=== PATIENT | male | born 1965 | race African-American/Black ===

== ENCOUNTER 2016-10-03 13:17 | Emergency (ER) | payer OTHER ==
[~2016-10-03] VITALS: Ht 177.8 cm; Wt 98.0 kg
[~2016-10-03 13:17] MED LIST: ASPI325T PO; GLUCTES27; INSU100V2 SQ; LANTUS2P SQ; LEXA10TA PO; LISI-519 PO; RISP4TAB41 PO; ROBA750T PO
[2016-10-03 13:30] VITALS: BP 107/69; PULSE 57; RESP 16; TEMP 98.1; O2SAT 98
[2016-10-03] MEDS ORDERED: ONDANSETRON HCL 4 MG/2 ML VIAL IV PUSH ONE (13:45)
[2016-10-03] MEDS ORDERED: SODIUM CHLORIDE 0.9% FLUSH 10 ML FLUSH IV FLUSH PRN (13:45)
[2016-10-03] MEDS ORDERED: SODIUM CHLOR 0.9% 1000 ML INJ 1,000 ML IV SCH (13:45)
--- NOTE | 2016-10-03 13:51 | PD ---
HPI Chief Complaint: HYPERGLYCEMIA Time Seen by Provider: 13:50 Travel History International Travel<30 days: No Contact w/Intl Traveler<30days: No History of Present Illness HPI 50-year-old male with a history of diabetes, hyperlipidemia, hep C is brought to the emergency department by EMS for evaluation of hyperglycemia. The patient states that for the past 2-3 days he has had elevated blood sugars around 400. States that he has also had nausea, nonbloody nonbilious emesis and body aches. Denies fever, chills, abdominal pain, diarrhea, constipation, chest pain, shortness of breath, cough or cold symptoms. He states that he has not used his insulin and about 3 or 4 days because he does not have any money and cannot afford to get it filled. He admits that he is still using cocaine, last used 4 days ago. No other complaints. PCP Dr. Mills. [facility] Past Medical History Hx Anticoagulant Therapy: Yes (asa) Anxiety: No Depression: No Cancer: No Cardiovascular Problems: No High Cholesterol: Yes Diabetes: Yes (TYPE 2, INSULIN) Diminished Hearing: No Endocrine: Yes Gastrointestinal Disorders: Yes (hepatitis C diagnosed 2006 ) Genitourinary: No Hepatitis: Yes ("C") Hypertension: Yes Immune Disorder: No Implanted Vascular Access Dvce: No Musculoskeletal: No Neurologic: No Psychiatric: Yes (schizophrenia) Reproductive: No Respiratory: No Immunizations Current: Yes Schizophrenia: Yes Sickle Cell Disease: No Thyroid Disease: No PNEUMOCCOCAL Vaccine (Year): 1 Past Surgical History Abdominal Surgery: Yes (gallblader removed 1994) Body Medical Devices: screws right wrist Cardiac Surgery: No Cholecystectomy: Yes (1994) Ear Surgery: No Endocrine Surgery: No Eye Surgery: No Genitourinary Surgery: No Oral Surgery: No Thoracic Surgery: No Other Surgery: Yes Social History Alcohol Use: Yes Tobacco Use: No Substance Use: No Allergies-Medications (Allergen,Severity, Reaction): Coded Allergies: *MDRO Multi-Drug Resistant Organism (Verified Allergy, Unknown, 08/06/16) MRSA Wound 01/2004 Reported Meds & Prescriptions Reported Meds & Active Scripts Active Humulin R Inj (Insulin Human Regular) 1,000 Unit/10 Ml Vial 2-12 Units SQ ACHS Max dose at bedtime:( )units; sugars < 70 (0)units; sugars 150-199, (2)units; sugars 200-249,(4)units; sugars 250-299, (7)units; sugars 300-349,(10)units; sugars more than 349,(12)units. Lantus Inj (Insulin Glargine) 1,000 Unit/10 Ml Vial 30 Units SQ BID Robaxin (Methocarbamol) 750 Mg Tab 750 Mg PO Q8HR Reported John Contour Next Blood Test Strips (Blood Glucose Test Strips) 1 Cookie Cookie 1 Strip .ROUTE DIRECTED Aspirin 325 Mg Tab 325 Mg PO DAILY Lexapro (Escitalopram Oxalate) 10 Mg Tab 10 Mg PO DAILY Lisinopril 5 Mg Tab 5 Mg PO DAILY Risperdal (Risperidone) 4 Mg Tab 4 Mg PO HS Review of Systems Except as stated in HPI: all other systems reviewed are Neg Physical Exam Narrative GENERAL: Well-nourished and well-developed pleasant male patient in no acute distress. SKIN: Warm and dry. HEAD: Normocephalic and atraumatic. EYES: No injection, drainage, or hyphema noted. PERRLA. EOMI. ENT: No nasal drainage noted. Oropharynx is clear. NECK: Supple and the trachea is midline. CARDIOVASCULAR: Regular rate and rhythm. RESPIRATORY: Breath sounds are equal bilaterally with no accessory muscle use, wheezing, rhonchi, or crackles. GASTROINTESTINAL: Abdomen is soft, non-tender, and nondistended. MUSCULOSKELETAL: No obvious deformities, swelling, cyanosis, or ecchymosis is present throughout the upper and lower extremities. Patient has full range of motion without any signs of neurovascular compromise. NEUROLOGICAL: Awake, alert, and oriented. Normal speech and gait. Cranial nerves are grossly intact. Data Data Last Documented VS Vital Signs Date Time Temp Pulse Resp B/P Pulse Ox O2 Delivery O2 Flow Rate FiO2 10/03/16 17:00 58 16 123/74 100 Room Air 10/03/16 13:30 98.1 Orders Electrocardiogram (10/03/16 13:45) Lipase (10/03/16 13:45) Complete Blood Count With Diff (10/03/16 13:45) Comprehensive Metabolic Panel (10/03/16 13:45) Magnesium (Mg) (10/03/16 13:45) Phosphorus (Po4) (10/03/16 13:45) Beta Hydroxybutyrate (Acetone) (10/03/16 13:45) Sodium Chlor 0.9% 1000 Ml Inj (Ns 1000 M (10/03/16 13:45) Urinalysis - C+S If Indicated (10/03/16 13:45) Lactic Acid Sepsis Protocol (10/03/16 13:45) Iv Access Insert/Monitor (10/03/16 13:45) Ecg Monitoring (10/03/16 13:45) Oximetry (10/03/16 13:45) Sodium Chlor 0.9% 1000 Ml Inj (Ns 1000 M (10/03/16 13:45) Sodium Chloride 0.9% Flush (Ns Flush) (10/03/16 13:45) Ondansetron Inj (Zofran Inj) (10/03/16 13:45) Creatine Kinase (Cpk) (10/03/16 13:45) Blood Glucose (10/03/16 13:59) Insulin Human Regular Inj (Novolin R Inj (10/03/16 15:30) Blood Glucose (10/03/16 16:37) Labs Laboratory Tests Test 10/03/16 10/03/16 10/03/16 11:00 14:00 15:10 White Blood Count 4.7 TH/MM3 Red Blood Count 4.46 MIL/MM3 Hemoglobin 14.3 GM/DL Hematocrit 40.4 % Mean Corpuscular Volume 90.7 FL Mean Corpuscular Hemoglobin 32.1 PG Mean Corpuscular Hemoglobin 35.4 % Concent Red Cell Distribution Width 12.8 % Platelet Count 124 TH/MM3 Mean Platelet Volume 8.5 FL Neutrophils (%) (Auto) 52.7 % Lymphocytes (%) (Auto) 38.2 % Monocytes (%) (Auto) 7.4 % Eosinophils (%) (Auto) 0.9 % Basophils (%) (Auto) 0.8 % Neutrophils # (Auto) 2.5 TH/MM3 Lymphocytes # (Auto) 1.8 TH/MM3 Monocytes # (Auto) 0.3 TH/MM3 Eosinophils # (Auto) 0.0 TH/MM3 Basophils # (Auto) 0.0 TH/MM3 CBC Comment DIFF FINAL Differential Comment Sodium Level 132 MEQ/L Potassium Level 4.2 MEQ/L Chloride Level 96 MEQ/L Carbon Dioxide Level 21.1 MEQ/L Anion Gap 15 MEQ/L Blood Urea Nitrogen 16 MG/DL Creatinine 1.05 MG/DL Estimat Glomerular Filtration 91 ML/MIN Rate Random Glucose 451 MG/DL Calcium Level 8.7 MG/DL Phosphorus Level 2.8 MG/DL Magnesium Level 2.1 MG/DL Total Bilirubin 0.4 MG/DL Aspartate Amino Transf 65 U/L (AST/SGOT) Alanine Aminotransferase 72 U/L (ALT/SGPT) Alkaline Phosphatase 54 U/L Total Creatine Kinase 112 U/L Total Protein 6.9 GM/DL Albumin 3.1 GM/DL Lipase 203 U/L B-Hydroxybutyrate 5.12 MMOL/L Lactic Acid Level 1.1 mmol/L Urine Color LIGHT-YELLOW Urine Turbidity CLEAR Urine pH 5.5 Urine Specific [place] 1.026 Urine Protein NEG mg/dL Urine Glucose (UA) 1000 mg/dL Urine Ketones 40 mg/dL Urine Occult Blood NEG Urine Nitrite NEG Urine Bilirubin NEG Urine Urobilinogen LESS THAN 2.0 MG/DL Urine Leukocyte Esterase NEG Urine WBC LESS THAN 1 /hpf Microscopic Urinalysis Comment CULT NOT INDICATED MDM Medical Decision Making Medical Screen Exam Complete: Yes Emergency Medical Condition: Yes Differential Diagnosis Hyperglycemia versus DKA versus electrolyte abnormality versus dehydration versus substance abuse Narrative Course 50-year-old male with a history of diabetes presents to the emergency department for evaluation of hyperglycemia with nausea, vomiting and body aches. Patient is afebrile, vital signs are stable. Physical examination is essentially unremarkable. Patient has not used his insulin in several days. EKG shows sinus bradycardia with no acute ST elevations or depressions. IV access is obtained, labs have been drawn and sent. Patient is placed on cardiac telemetry and pulse oximetry monitoring. Patient is administered IV fluids. CBC is unremarkable. CMP shows hyperglycemia with a glucose of 451. Normal bicarbonate, no anion gap and normal potassium. Lactic acid 1.1 CPKs within normal limits. Beta hydroxybutyrate is elevated at 5.12 Urinalysis shows glucosuria and 40 ketones. Patient has been administered 2 L of IV fluid and 10 units of insulin subcutaneous. Blood glucose has come down to 300 while here in the ED. Patient is stable for discharge to follow up as an outpatient with his PCP. Counseled cessation of cocaine use. Counseled compliance with insulin. Patient verbalizes understanding and agreement with treatment plan. I discussed the case with my attending physician Dr. George who is aware of the patients history, physical examination findings, and treatment plan. Diagnosis Primary Impression: Diabetes mellitus with hyperglycemia Qualified Code: E11.65 - Type 2 diabetes mellitus with hyperglycemia, with long-term current use of insulin Additional Impression: Noncompliance with medication regimen Referrals: Primary Care Physician Patient Instructions: Diabetic Hyperglycemia (ED), General Instructions Additional Instructions: Take your insulin as prescribed by your PCP. Follow-up with your Primary Care Physician. Return to the ED for any acute worsening of symptoms. Med/Other Pt SpecificInfo: No Change to Meds Disposition: 01 DISCHARGE HOME Condition: Stable Iman Todd Oct 03, 2016 13:51
[2016-10-03] MEDS: SODIUM CHLOR 0.9% 1000 ML INJ 1,000 ML IV SCH ×2 (14:04→15:00)
[2016-10-03 14:19] VITALS: RESP 16; O2SAT 99
[2016-10-03 14:32] LABS: AUTOMATED NEUTROPHIL # 2.5 TH/MM3 (1.8-7.7); BASOPHIL % 0.8 % (0.0-2.0); EOSINOPHIL % 0.9 % (0.0-4.0); HEMATOCRIT 40.4 % (39.0-51.0); HEMO FLAGS DIFF FINAL; LYMPH % 38.2 % (9.0-44.0); LYMPHOCYTE # 1.8 TH/MM3 (1.0-4.8); MEAN CELL VOLUME 90.7 FL (80.0-100.0); MEAN CORPUSCULAR HEMOGLOBIN 32.1 PG (27.0-34.0); MEAN CORPUSCULAR HGB CONC 35.4 % (32.0-36.0); MONO % 7.4 % (0.0-8.0); NEUT % 52.7 % (16.0-70.0); PLATELET COUNT 124 TH/MM3 (150-450); RED BLOOD COUNT 4.46 MIL/MM3 (4.50-5.90); RED CELL DISTRIBUTION WIDTH 12.8 % (11.6-17.2); WHITE BLOOD COUNT 4.7 TH/MM3 (4.0-11.0)
[2016-10-03 14:58] LABS: ANION GAP 15 MEQ/L (5-15)
[2016-10-03 15:00] VITALS: BP 118/71; PULSE 54; RESP 24; O2SAT 99
[2016-10-03 15:03] LABS: ALKALINE PHOSPHATASE 54 U/L (45-117); ALT (GPT) 72 U/L (12-78); AST (GOT) 65 U/L (15-37); BETA-HYDROXYBUTYRATE 5.12 MMOL/L (0.00-0.39); BICARBONATE 21.1 MEQ/L (21.0-32.0); BLOOD UREA NITROGEN 16 MG/DL (7-18); CHLORIDE 96 MEQ/L (98-107); CREATINE KINASE 112 U/L (39-308); GLOMERULAR FILTRATION RATE 91 ML/MIN (>89); MAGNESIUM 2.1 MG/DL (1.5-2.5); SODIUM (NA) 132 MEQ/L (136-145); TOTAL BILIRUBIN ADULT 0.4 MG/DL (0.2-1.0)
[2016-10-03 15:06] LABS: POTASSIUM 4.2 MEQ/L (3.5-5.1)
[2016-10-03] MEDS ORDERED: INSULIN HUMAN REGULAR 1,000 UNITS/10 ML VIAL SQ ONE (15:30)
[2016-10-03 16:40] LABS: BLOOD, URINE NEG (NEG); GLUCOSE,URINE 1000 mg/dL (NEG); KETONE, URINE 40 mg/dL (NEG); NITRITE,URINE NEG (NEG); PH, URINE 5.5 (5.0-8.5); URINE COLOR LIGHT-YELLOW (YELLW/STRAW)
[2016-10-03 16:41] LABS: COMMENT (UR) CULT NOT INDICATED; CULTURE IF INDICATED CULT NOT INDICATED
[2016-10-03 17:00] VITALS: BP 123/74; PULSE 58; RESP 16; O2SAT 100
--- NOTE | 2016-10-04 10:35 | EKG ---
Date Performed: 10/03/2016 Time Performed: 14:07:51 PTAGE: 50 years EKG: SINUS BRADYCARDIA ST ELEVATION, PROBABLY EARLY REPOLARIZATION BORDERLINE ECG Compared to pr ior tracing no significant change PREVIOUS TRACING : 12/24/2014 03.32 DOCTOR: Minor Mendoza Interpretating Date/Time 10/04/2016 10:28:08
== END 2016-10-03 17:20 | disposition home or self-care (01) ==
LOC: NEPC 13:17
DX: E11.65 Type 2 diabetes mellitus with hyperglycemia (principal); I10 Essential (primary) hypertension; R00.1 Bradycardia, unspecified; F20.9 Schizophrenia, unspecified; E78.00 Pure hypercholesterolemia, unspecified; Z79.4 Long term (current) use of insulin; Z91.14 Patient's other noncompliance with medication regimen; Z79.82 Long term (current) use of aspirin
CPT/HCPCS: 80053; 81001; 82010; 82550; 83605; 83690; 83735; 84100; 85025; 93005; 96361; 96372; 96374; 99285; J1815; J2405; J7030

== ENCOUNTER 2016-10-28 19:06 | Inpatient (IN) | payer OTHER ==
[~2016-10-28] VITALS: Ht 177.8 cm; Wt 90.3 kg
[2016-10-28 19:09] VITALS: BP 124/78; PULSE 83; RESP 16; TEMP 97.9; O2SAT 98
--- NOTE | 2016-10-28 19:18 | PD ---
Physical Exam Time Seen by Provider: 19:15 Narrative 51 y/o male presents for evaluation of dizziness, syncope in which he fell and hit his back on a table. Endorses nausea, emesis last night, hyperglycemia. Dizziness/nausea onset 2 days ago. vital signs reviewed. Seen at triage desk. Awaiting bed placement. Data Data Last Documented VS Vital Signs Date Time Temp Pulse Resp B/P Pulse Ox O2 Delivery O2 Flow Rate FiO2 10/28/16 19:09 97.9 83 16 124/78 98 Room Air [facility] Medical Record Reviewed: Yes Supervised Visit with SIM: Gianni Dickerson October 28, 2016 19:18
[2016-10-28] MEDS ORDERED: SODIUM CHLOR 0.9% 1000 ML INJ 1,000 ML IV ONE ×2 (19:44→20:14)
[2016-10-28] MEDS ORDERED: SODIUM CHLORIDE 0.9% FLUSH 10 ML FLUSH IVF PRN (19:45)
[2016-10-28 19:48] VITALS: BP 118/76; PULSE 67; RESP 18; O2SAT 97
--- NOTE | 2016-10-28 19:49 | PD ---
HPI Chief Complaint: Diabetic Time Seen by Provider: 19:41 Travel History International Travel<30 days: No Contact w/Intl Traveler<30days: No Traveled to known affect area: No History of Present Illness HPI 51-year-old male with history of insulin dependent diabetes, here for evaluation of syncopal episode, lightheadedness, and left flank pain. The patient states that this morning he felt very weak and may have passed out. He states that he landed on his left flank area and is now complaining of pain which is moderate to severe, constant, worse with movement and palpation. He feels nauseous. He has not taken his insulin in the last 4 days because he ran out. He denies fevers or chills. No vomiting or diarrhea. No chest pain or dyspnea. No history of cardiac disease. No history of syncope. Denies head or neck pain or trauma. He takes 81 mg of aspirin daily. No other antiplatelets or anticoagulants. PFSH Past Medical History Hx Anticoagulant Therapy: Yes (asa) Anxiety: No Depression: No Cancer: No Cardiovascular Problems: No High Cholesterol: Yes Diabetes: Yes Patient Takes Glucophage: No Diminished Hearing: No Endocrine: Yes Gastrointestinal Disorders: Yes Genitourinary: No Hepatitis: Yes ("C") Hypertension: Yes Immune Disorder: No Implanted Vascular Access Dvce: No Musculoskeletal: No Neurologic: No Psychiatric: Yes Reproductive: No Respiratory: No Immunizations Current: Yes Schizophrenia: Yes Sickle Cell Disease: No Thyroid Disease: No PNEUMOCCOCAL Vaccine (Year): 1 Past Surgical History Abdominal Surgery: Yes (gallblader removed 1994) Body Medical Devices: screws right wrist Cardiac Surgery: No Cholecystectomy: Yes (1994) Ear Surgery: No Endocrine Surgery: No Eye Surgery: No Genitourinary Surgery: No Oral Surgery: No Thoracic Surgery: No Other Surgery: Yes Social History Alcohol Use: Yes Tobacco Use: No Substance Use: Yes (cocaine ) Allergies-Medications (Allergen,Severity, Reaction): Coded Allergies: *MDRO Multi-Drug Resistant Organism (Verified Allergy, Unknown, 10/28/16) MRSA Wound 01/2004 Reported Meds & Prescriptions Reported Meds & Active Scripts Active Humulin R Inj (Insulin Human Regular) 1,000 Unit/10 Ml Vial 2-12 Units SQ ACHS Max dose at bedtime:( )units; sugars < 70 (0)units; sugars 150-199, (2)units; sugars 200-249,(4)units; sugars 250-299, (7)units; sugars 300-349,(10)units; sugars more than 349,(12)units. Lantus Inj (Insulin Glargine) 1,000 Unit/10 Ml Vial 30 Units SQ BID Robaxin (Methocarbamol) 750 Mg Tab 750 Mg PO Q8HR Reported John Contour Next Blood Test Strips (Blood Glucose Test Strips) 1 Cookie Cookie 1 Strip .ROUTE DIRECTED Aspirin 325 Mg Tab 325 Mg PO DAILY Lexapro (Escitalopram Oxalate) 10 Mg Tab 10 Mg PO DAILY Lisinopril 5 Mg Tab 5 Mg PO DAILY Risperdal (Risperidone) 4 Mg Tab 4 Mg PO HS Review of Systems Except as stated in HPI: all other systems reviewed are Neg Physical Exam Narrative GENERAL: Well-developed, well-nourished, awake, alert, no acute distress. SKIN: Focused skin assessment warm/dry. No rash. HEAD: Atraumatic. Normocephalic. EYES: Pupils equal and round. No scleral icterus. No injection or drainage. ENT: No nasal bleeding or discharge. Mucous membranes pink and dry. NECK: Trachea midline. No JVD. No nuchal rigidity. No midline vertebral step- off or tenderness. CARDIOVASCULAR: Regular rate and rhythm. No murmur appreciated. RESPIRATORY: No accessory muscle use. Clear to auscultation. Breath sounds equal bilaterally. GASTROINTESTINAL: Abdomen soft, non-tender, nondistended. MUSCULOSKELETAL: No obvious deformities. No clubbing. No cyanosis. No edema. Moderate left flank tenderness without edema. No midline vertebral step-off or tenderness. NEUROLOGICAL: Awake and alert. No obvious cranial nerve deficits. Motor grossly within normal limits. Normal speech. PSYCHIATRIC: Appropriate mood and affect; insight and judgment normal. Data Data Last Documented VS Vital Signs Date Time Temp Pulse Resp B/P Pulse Ox O2 Delivery O2 Flow Rate FiO2 10/28/16 19:48 67 18 118/76 97 Room Air 10/28/16 19:09 97.9 Orders Electrocardiogram (10/28/16 19:44) Complete Blood Count With Diff (10/28/16 19:44) Comprehensive Metabolic Panel (10/28/16 19:44) Magnesium (Mg) (10/28/16 19:44) Phosphorus (Po4) (10/28/16 19:44) Beta Hydroxybutyrate (Acetone) (10/28/16 19:44) Urinalysis - C+S If Indicated (10/28/16 19:44) Chest, Single Ap (10/28/16 19:44) Ecg Monitoring (10/28/16 19:44) Iv Access Insert/Monitor (10/28/16 19:44) Oximetry (10/28/16 19:44) NPO (10/28/16 19:44) Sodium Chlor 0.9% 1000 Ml Inj (Ns 1000 M (10/28/16 19:44) Sodium Chlor 0.9% 1000 Ml Inj (Ns 1000 M (10/28/16 20:14) Sodium Chloride 0.9% Flush (Ns Flush) (10/28/16 19:45) Ct Brain W/O Iv Contrast(Rout) (10/28/16 ) Blood Gas Venous (Vbg) (10/28/16 19:44) Ct Abd/Pel W Iv Contrast(Rout) (10/28/16 ) Prothrombin Time / Inr (Pt) (10/28/16 19:47) Act Partial Throm Time (Ptt) (10/28/16 19:47) Ckmb (Isoenzyme) Profile (10/28/16 19:45) Troponin I (10/28/16 19:45) CKMB (10/28/16 19:45) CKMB% (10/28/16 19:45) Registered Nurse / Telemetry ELDA.Q8H (10/28/16 20:40) ^ Insert Iv (10/28/16 20:40) Diet Npo (10/29/16 Breakfast) Sodium Chlor 0.9% 1000 Ml Inj (Ns 1000 M (10/28/16 20:40) Dext 5%-Nacl 0.9% 1000 Ml Inj (D5w-Ns 10 (10/28/16 20:40) Insulin Human Regular Inj (Novolin R Inj (10/28/16 20:45) Insulin Regular (Iv Infusion) (Novolin R (10/28/16 20:45) Potassium Chlor 40 Meq Premix (Kcl 40 Me (10/28/16 20:45) Potassium Chlor 40 Meq Premix (Kcl 40 Me (10/28/16 20:45) Potassium Chlor 20 Meq Premix (Kcl 20 Me (10/28/16 20:45) Potassium Chlor 20 Meq Premix (Kcl 20 Me (10/28/16 20:45) Potassium Chlor 20 Meq Premix (Kcl 20 Me (10/28/16 20:45) Potassium Chlor 20 Meq Premix (Kcl 20 Me (10/28/16 20:45) Potassium Chlor 20 Meq Premix (Kcl 20 Me (10/28/16 20:45) Potassium Chlor 20 Meq Premix (Kcl 20 Me (10/28/16 20:45) Sodium Bicarbonate 8.4% Inj (Sodium Bica (10/28/16 20:45) Sodium Bicarbonate 8.4% Inj (Sodium Bica (10/28/16 20:45) Sodium Phosphate Inj (Sodium Phosphate I (10/28/16 20:45) Hemoglobin (Hgb) A1c (10/28/16 20:40) Basic Metabolic Panel (Bmp) (10/29/16 01:40) Basic Metabolic Panel (Bmp) (10/29/16 07:40) Basic Metabolic Panel (Bmp) (10/29/16 13:40) Basic Metabolic Panel (Bmp) (10/29/16 19:40) Magnesium (Mg) (10/29/16 01:40) Magnesium (Mg) (10/29/16 07:40) Magnesium (Mg) (10/29/16 13:40) Magnesium (Mg) (10/29/16 19:40) Phosphorus (Po4) (10/29/16 01:40) Phosphorus (Po4) (10/29/16 07:40) Phosphorus (Po4) (10/29/16 13:40) Phosphorus (Po4) (10/29/16 19:40) Beta Hydroxybutyrate (Acetone) (10/29/16 07:40) Beta Hydroxybutyrate (Acetone) (10/29/16 19:40) Iohexol 350 Inj (Omnipaque 350 Inj) (10/28/16 20:55) Labs Laboratory Tests Test 10/28/16 10/28/16 19:45 20:19 White Blood Count 5.4 TH/MM3 Red Blood Count 4.69 MIL/MM3 Hemoglobin 15.3 GM/DL Hematocrit 43.7 % Mean Corpuscular Volume 93.2 FL Mean Corpuscular Hemoglobin 32.6 PG Mean Corpuscular Hemoglobin 35.0 % Concent Red Cell Distribution Width 13.1 % Platelet Count 169 TH/MM3 Mean Platelet Volume 9.2 FL Neutrophils (%) (Auto) 56.9 % Lymphocytes (%) (Auto) 30.1 % Monocytes (%) (Auto) 11.3 % Eosinophils (%) (Auto) 0.5 % Basophils (%) (Auto) 1.2 % Neutrophils # (Auto) 3.1 TH/MM3 Lymphocytes # (Auto) 1.6 TH/MM3 Monocytes # (Auto) 0.6 TH/MM3 Eosinophils # (Auto) 0.0 TH/MM3 Basophils # (Auto) 0.1 TH/MM3 CBC Comment DIFF FINAL Differential Comment Urine Color LIGHT-YELLOW Urine Turbidity CLEAR Urine pH 5.0 Urine Specific [place] 1.029 Urine Protein NEG mg/dL Urine Glucose (UA) 1000 mg/dL Urine Ketones 40 mg/dL Urine Occult Blood NEG Urine Nitrite NEG Urine Bilirubin NEG Urine Urobilinogen LESS THAN 2.0 MG/DL Urine Leukocyte Esterase NEG Urine RBC LESS THAN 1 /hpf Urine WBC 1 /hpf Microscopic Urinalysis Comment CULT NOT INDICATED Sodium Level 127 MEQ/L Potassium Level 4.8 MEQ/L Chloride Level 91 MEQ/L Carbon Dioxide Level 16.9 MEQ/L Anion Gap 19 MEQ/L Blood Urea Nitrogen 17 MG/DL Creatinine 1.40 MG/DL Estimat Glomerular Filtration 65 ML/MIN Rate Random Glucose 598 MG/DL Calcium Level 8.9 MG/DL Phosphorus Level 3.9 MG/DL Magnesium Level 2.2 MG/DL Total Bilirubin 0.5 MG/DL Aspartate Amino Transf 70 U/L (AST/SGOT) Alanine Aminotransferase 82 U/L (ALT/SGPT) Alkaline Phosphatase 64 U/L Total Creatine Kinase 150 U/L Creatine Kinase MB LESS THAN 0.5 NG/ML Troponin I LESS THAN 0.02 NG/ML Total Protein 8.2 GM/DL Albumin 3.4 GM/DL B-Hydroxybutyrate 6.97 MMOL/L Blood Gas Puncture Site IV Blood Gas Patient Temperature 98.6 Venous Blood pH 7.40 Venous Blood Partial Pressure 28 mmHg CO2 Venous Blood Partial Pressure 40 mmHg O2 Venous Blood HCO3 17 mmol/L Venous Blood Oxygen Saturation 75 % Venous Blood Oxygen Content 16.4 Vol % Venous Blood Base Excess -7.3 mmol/L Oxygen Delivery Device ROOM AIR MDM Medical Decision Making Medical Screen Exam Complete: Yes Emergency Medical Condition: Yes Interpretation(s) EKG: Sinus, rate 58, normal axis, normal intervals, early repolarization Differential Diagnosis DKA, retroperitoneal hematoma, vertebral injury less likely, metabolic abnormality, intracranial abnormality Narrative Course Vital signs show heart rate 83, blood pressure 124/78, pulse ox 90% on room air , oral temp of 97.9F. CBC is unremarkable. CMP is remarkable for sodium 127, chloride 91, bicarbonate 16.9, anion gap 19, creatinine 1.4, GFR 65, random glucose 600, AST 70, ALT 82. Cardiac enzymes are negative. Beta hydroxybutyrate is 6.97. ABG shows a pH of 7.4, PCO2 28, A to bicarbonate of 17. DKA protocol initiated after labs were resulted. The patient was given 2 L normal saline IV promptly after arriving to the emergency department. Chest x-ray shows no acute disease. CT head: No acute disease. CT abdomen pelvis: CONCLUSION: 1. Unremarkable bowel gas pattern with no evidence of obstruction or inflammatory change. 2. Fatty steatosis involving the liver with multiple areas of low attenuation along the region of the falciform ligament which are nonspecific. This can be further evaluated with outpatient MRI with and without contrast. 3. Status post cholecystectomy. Patient was made aware of all findings. He will be admitted for further treatment and evaluation of DKA, syncope. Critical Care Narrative Aggregate critical care time was 40 minutes. Time to perform other separately billable procedures was not included in the critical care time. My time did not include minutes spent treating any other patients simultaneously or on activities that did not directly contribute to the patient's treatment. The services I provided to this patient were to treat and/or prevent clinically significant deterioration that could result in: , permanent disability, worsening clinical condition, diabetic coma I provided critical care services requiring my management, as noted below: Chart data review, documentation time, medication orders and management, vital sign assessments/reviewing monitor data, ordering and reviewing lab tests, ordering and interpreting/reviewing x-rays and diagnostic studies, care of the patient and discussion of the patient with the admitting physicians. Diagnosis Primary Impression: DKA (diabetic ketoacidoses) Qualified Code: E10.10 - Diabetic ketoacidosis without coma associated with type 1 diabetes mellitus Additional Impression: Syncope Qualified Code: R55 - Syncope, unspecified syncope type Admitting Information Admitting Physician Requests: Admit Toby Tovar MD October 28, 2016 19:49
[2016-10-28 20:07] LABS: AUTOMATED NEUTROPHIL # 3.1 TH/MM3 (1.8-7.7); BASOPHIL # 0.1 TH/MM3 (0-0.2); BASOPHIL % 1.2 % (0.0-2.0); EOSINOPHIL % 0.5 % (0.0-4.0); HEMATOCRIT 43.7 % (39.0-51.0); HEMO FLAGS DIFF FINAL; LYMPH % 30.1 % (9.0-44.0); LYMPHOCYTE # 1.6 TH/MM3 (1.0-4.8); MEAN CELL VOLUME 93.2 FL (80.0-100.0); MEAN CORPUSCULAR HEMOGLOBIN 32.6 PG (27.0-34.0); MONO % 11.3 % (0.0-8.0); NEUT % 56.9 % (16.0-70.0); PLATELET COUNT 169 TH/MM3 (150-450); RED BLOOD COUNT 4.69 MIL/MM3 (4.50-5.90); RED CELL DISTRIBUTION WIDTH 13.1 % (11.6-17.2); WHITE BLOOD COUNT 5.4 TH/MM3 (4.0-11.0)
[2016-10-28 20:20] LABS: BLOOD, URINE NEG (NEG); COMMENT (UR) CULT NOT INDICATED; CULTURE IF INDICATED CULT NOT INDICATED; GLUCOSE,URINE 1000 mg/dL (NEG); KETONE, URINE 40 mg/dL (NEG); NITRITE,URINE NEG (NEG); URINE COLOR LIGHT-YELLOW (YELLW/STRAW)
[2016-10-28 20:23] LABS: BLOOD GAS VENOUS BASE EXCESS -7.3 mmol/L (-2-2); BLOOD GAS VENOUS HCO3 17 mmol/L (22-26); BLOOD GAS VENOUS O2 CONTENT 16.4 Vol % (9.0-17.0); BLOOD GAS VENOUS O2 HGB SAT 75 % (70-76); BLOOD GAS VENOUS PCO2 28 mmHg (44-48); BLOOD GAS VENOUS PO2 40 mmHg (35-40); CRITICAL VALUE NO; OXYGEN DEVICE ROOM AIR; TEMP CORR TO 98.6
[2016-10-28 20:24] LABS: DRAW SITE IV; STAT NO
[2016-10-28 20:29] LABS: ANION GAP 19 MEQ/L (5-15)
[2016-10-28 20:34] LABS: ALKALINE PHOSPHATASE 64 U/L (45-117); ALT (GPT) 82 U/L (12-78); AST (GOT) 70 U/L (15-37); BETA-HYDROXYBUTYRATE 6.97 MMOL/L (0.00-0.39); BICARBONATE 16.9 MEQ/L (21.0-32.0); BLOOD UREA NITROGEN 17 MG/DL (7-18); CHLORIDE 91 MEQ/L (98-107); CREATINE KINASE 150 U/L (39-308); GLOMERULAR FILTRATION RATE 65 ML/MIN (>89); MAGNESIUM 2.2 MG/DL (1.5-2.5); POTASSIUM 4.8 MEQ/L (3.5-5.1); SODIUM (NA) 127 MEQ/L (136-145); TOTAL BILIRUBIN ADULT 0.5 MG/DL (0.2-1.0)
--- NOTE | 2016-10-28 20:39 | RADRPT ---
EXAM DATE/TIME: 10/28/2016 20:19 [facility] COMPARISON: CHEST SINGLE AP, December 24, 2014, 4:51. INDICATIONS : Posterior left side chest pain. MEDICAL HISTORY : None. SURGICAL HISTORY : None. ENCOUNTER: Initial ACUITY: 1 day PAIN SCORE: 8/10 LOCATION: Left posterior chest. FINDINGS: A single view of the chest demonstrates the lungs to be symmetrically aerated without evidence of mas s, infiltrate or effusion. The cardiomediastinal contours are unremarkable. Osseous structures are intact. There is no pneumothorax. There are overlying electrocardiogram leads. CONCLUSION: No acute disease. German Malloy MD on October 28, 2016 at 20:36 Board Certified Radiologist. This report was verified electronically.
[2016-10-28] MEDS ORDERED: POTASSIUM CHLOR 20 MEQ PREMIX 100 ML IV PRN ×5 (20:45)
[2016-10-28] MEDS ORDERED: POTASSIUM CHLOR 40 MEQ PREMIX 100 ML IV PRN ×2 (20:45)
[2016-10-28] MEDS ORDERED: INSULIN REGULAR (IV INFUSION) 100 UNITS in SODIUM CHLORIDE 0.9% INJ 99 ML IV SCH (20:45)
[2016-10-28] MEDS ORDERED: SODIUM BICARBONATE 8.4% SOLN 50 MEQ/50 ML VIAL IV PRN ×2 (20:45)
[2016-10-28] MEDS ORDERED: INSULIN HUMAN REGULAR 1,000 UNITS/10 ML VIAL IV PUSH ONE (20:45)
[2016-10-28] MEDS ORDERED: SODIUM PHOSPHATE INJ 15 MMOL in SODIUM CHLORIDE 0.9% INJ 100 ML IV PRN (20:45)
[2016-10-28] MEDS ORDERED: IOHEXOL 350 MG/ML 10 ML VIAL (for RAD DIAG) IV ONE (20:55)
[2016-10-28 20:58] LABS: CKMB LESS THAN 0.5 NG/ML (0.5-3.6)
--- NOTE | 2016-10-28 21:03 | RADRPT ---
EXAM DATE/TIME: 10/28/2016 20:49 [facility] COMPARISON: No previous studies available for comparison. INDICATIONS : Fell and hit head yesterday, dizzy RADIATION DOSE: 64.19 CTDIvol (mGy) MEDICAL HISTORY : Hypertension. Diabetes mellitus type 2. Hepatitis C. SURGICAL HISTORY : Cholecystectomy. ENCOUNTER: Initial ACUITY: 2 days PAIN SCALE: 6/10 LOCATION: cranial TECHNIQUE: Multiple contiguous axial images were obtained of the head. Using automated exposure control and adj ustment of the mA and/or kV according to patient size, radiation dose was kept as low as reasonably a chievable to obtain optimal diagnostic quality images. FINDINGS: CEREBRUM: The ventricles are normal for age. No evidence of midline shift, mass lesion, hemorrhage or acute in farction. No extra-axial fluid collections are seen. POSTERIOR FOSSA: The cerebellum and brainstem are intact. The 4th ventricle is midline. The cerebellopontine angle i s unremarkable. EXTRACRANIAL: The visualized portion of the orbits is intact. SKULL: The calvaria is intact. No evidence of skull fracture. CONCLUSION: Negative noncontrast exam. German Malloy MD on October 28, 2016 at 20:56 Board Certified Radiologist. This report was verified electronically.
--- NOTE | 2016-10-28 21:12 | RADRPT ---
EXAM DATE/TIME: 10/28/2016 20:52 [facility] COMPARISON: No previous studies available for comparison. INDICATIONS : Nausea IV CONTRAST: 95 cc Omnipaque 350 (iohexol) IV ORAL CONTRAST: No oral contrast ingested. RADIATION DOSE: 7.94 CTDIvol (mGy) MEDICAL HISTORY : Hypertension. Diabetes mellitus type 2. Hepatitis C. SURGICAL HISTORY : Cholecystectomy. ENCOUNTER: Initial ACUITY: 2 days PAIN SCALE: 2/10 LOCATION: Diffuse abdomen TECHNIQUE: Volumetric scanning of the abdomen and pelvis was performed. Using automated exposure control and ad justment of the mA and/or kV according to patient size, radiation dose was kept as low as reasonably achievable to obtain optimal diagnostic quality images. FINDINGS: LOWER LUNGS: The visualized lower lungs are clear. LIVER: Homogeneous density without lesion. There is no dilation of the biliary tree. The patient is status post cholecystectomy. There is mild hepatic steatosis. There are ill-defined low-attenuation areas al anabelle the falciform ligament seen on images numbers 27 through 33. This measures up to approximately 2. 5 x 1.3 cm in diameter. SPLEEN: Normal size without lesion. PANCREAS: Within normal limits. KIDNEYS: Normal in size and shape. There is no mass, stone or hydronephrosis. ADRENAL GLANDS: Within normal limits. VASCULAR: There is no aortic aneurysm. BOWEL/MESENTERY: The stomach, small bowel, and colon demonstrate no acute abnormality. There is no free intraperitone al air or fluid. ABDOMINAL WALL: Within normal limits. RETROPERITONEUM: There is no lymphadenopathy. BLADDER: No wall thickening or mass. REPRODUCTIVE: Within normal limits. INGUINAL: There is no lymphadenopathy or hernia. MUSCULOSKELETAL: Within normal limits for patient age. CONCLUSION: 1. Unremarkable bowel gas pattern with no evidence of obstruction or inflammatory change. 2. Fatty steatosis involving the liver with multiple areas of low attenuation along the region of the falciform ligament which are nonspecific. This can be further evaluated with outpatient MRI with and without contrast. 3. Status post cholecystectomy. German Malloy MD on October 28, 2016 at 21:07 Board Certified Radiologist. This report was verified electronically.
[2016-10-28] MEDS: SODIUM CHLOR 0.9% 1000 ML INJ 1,000 ML IV SCH (21:35)
[2016-10-28] MEDS ORDERED: SODIUM CHLORIDE 0.9% FLUSH 10 ML FLUSH IV FLUSH PRN (21:45)
[2016-10-28] MEDS ORDERED: NALOXONE HCL 0.4 MG/ML AMP IV PRN (21:45)
[2016-10-28] MEDS: DEXT 5%-NACL 0.9% 1000 ML INJ 1,000 ML IV SCH (22:52)
--- NOTE | 2016-10-28 23:01 | HHI.HP ---
[facility] Primary Care Physician Jenelle Mills MD Admission Diagnosis DKA, syncope Diagnoses: (1) DKA (diabetic ketoacidoses) (2) Syncope Chief Complaint: Syncopal episode and left back/flank pain Travel History International Travel<30 Days: No Contact w/Intl Traveler <30 Da: No Traveled to Known Affected Are: No History of Present Illness Mr. Martines is a 51-year-old male with a history of type 2 diabetes mellitus, hepatitis C, and hyperlipidemia who presented to the emergency room on 10/28/2016 for evaluation of a syncopal episode, lightheadedness, and left flank pain. Blood glucose was 598 in the ER. Mr. Martines is seen in the ER. He reports the following: Dizziness, lightheadedness, nausea, vomited for the past few days with a single syncopal episode today - denies chest pain, shortness of breath, diaphoresis, or nausea/vomiting prior to syncope - denies confusion post-syncopal episode; denies urine or fecal incontinence, denies unilateral weakness - episode occurred at 10 a.m. then he rested at home - was dizzy and left side of back was hurting - was able to get up and go to bathroom etc.- at 4 p.m. he decided to come to ER because his back was hurting and suspected his blood sugar was high (felt like it was high but didn't measure it) dizziness occurs when standing up Red blood in stool a few days ago - on toilet paper - occurred a couple of times - no history of hemorrhoids Denies black or red vomit No dysuria or hematuria Reports severe aching left back/flank pain worsened with movement and touch. Denies hypertension, CAD, CHF, irregular heart rhythms, breathing problems: copd asthma, kidney problems, seizures, thyroid, cancer, prostate problems, or problems with blood clots such as PE, DVT, or CVA hepatitis C 2006 - treated Never had colonoscopy or panendoscopy Review of Systems Except as stated in HPI: all other systems reviewed are Neg Past Family Social History Past Medical History Type 2 diabetes mellitus since 2006 Hyperlipidemia Hepatitis C Past Surgical History right wrist surgery cholecystectomy wart removal . Reported Medications Reported Meds & Active Scripts Active Humulin R Inj (Insulin Human Regular) 1,000 Unit/10 Ml Vial 2-12 Units SQ ACHS Max dose at bedtime:( )units; sugars < 70 (0)units; sugars 150-199, (2)units; sugars 200-249,(4)units; sugars 250-299, (7)units; sugars 300-349,(10)units; sugars more than 349,(12)units. Lantus Inj (Insulin Glargine) 1,000 Unit/10 Ml Vial 30 Units SQ BID Robaxin (Methocarbamol) 750 Mg Tab 750 Mg PO Q8HR Reported Rewalon Contour Next Blood Test Strips (Blood Glucose Test Strips) 1 Cookie Cookie 1 Strip .ROUTE DIRECTED Aspirin 325 Mg Tab 325 Mg PO DAILY Lexapro (Escitalopram Oxalate) 10 Mg Tab 10 Mg PO DAILY Lisinopril 5 Mg Tab 5 Mg PO DAILY Risperdal (Risperidone) 4 Mg Tab 4 Mg PO HS . Allergies: Coded Allergies: *MDRO Multi-Drug Resistant Organism (Verified Allergy, Unknown, 10/28/16) MRSA Wound 01/2004 Active Ordered Medications Current Medications Sodium Chloride 1,000 ml @ 2,000 mls/hr Q30M ONCE IV Last administered on 19:56; Start 10/28/16 at 19:44; Stop 10/28/16 at 20:13; Status DC Sodium Chloride (NS 1000 ml Inj) 1,000 ml @ 2,000 mls/hr Q30M ONCE IV Last administered on 10/28/16 19:56; Start 10/28/16 at 20:14; Stop 10/28/16 at 20:43; Status DC Sodium Chloride 2 ml 2 ml UNSCH PRN IVF FLUSH AFTER USING IV ACCESS Last administered on 10/28/16 19:56; Start 10/28/16 at 19:45; Stop 10/28/16 at 21:42; Status DC Sodium Chloride 1,000 ml @ 250 mls/hr Q4H IV Last administered on 10/28/16 21: 35; Start 10/28/16 at 20:40 Dextrose/Sodium Chloride (D5W-NS 1000 ml Inj) 1,000 ml @ 200 mls/hr Q5H IV Last administered on 10/29/16 01:44; Start 10/28/16 at 20:40 Insulin Human Regular 9 units 9 units BOLUS ONCE IV PUSH Last administered on 10/28/16 21:35; Start 10/28/16 at 20:45; Stop 10/28/16 at 20:46; Status DC Insulin Human Regular 100 units/ Sodium Chloride 100 ml @ 0 mls/hr TITRATE IV Last administered on 10/28/16 21:42; Start 10/28/16 at 20:45 Potassium Chloride 100 ml @ 100 mls/hr Q1H PRN IV SEE LABEL COMMENTS; Start at 20:45 Potassium Chloride 100 ml @ 50 mls/hr Q2H PRN IV SEE LABEL COMMENTS; Start 10/28/16 at 20:45 Potassium Chloride 100 ml @ 100 mls/hr Q1H PRN IV SEE LABEL COMMENTS; Start at 20:45 Potassium Chloride 100 ml @ 100 mls/hr Q1H PRN IV SEE LABEL COMMENTS; Start at 20:45 Potassium Chloride 100 ml @ 50 mls/hr Q2H PRN IV SEE LABEL COMMENTS Last administered on 10/29/16 04:47; Start 10/28/16 at 20:45 Potassium Chloride 100 ml @ 50 mls/hr Q2H PRN IV SEE LABEL COMMENTS; Start 10/28/16 at 20:45 Potassium Chloride 100 ml @ 50 mls/hr Q2H PRN IV SEE LABEL COMMENTS; Start 10/28/16 at 20:45 Potassium Chloride (KCl 20 Meq Premix Inj) 100 ml @ 50 mls/hr Q2H PRN IV SEE LABEL COMMENTS; Start 10/28/16 at 20:45 Sodium Bicarbonate (Sodium Bicarbonate 8.4% Inj) 100 meq UNSCH PRN IV SEE LABEL COMMENTS; Start 10/28/16 at 20:45 Sodium Bicarbonate 50 meq 50 meq UNSCH PRN IV SEE LABEL COMMENTS; Start at 20:45 Sodium Phosphate/ Sodium Chloride (Sodium Phosphate Inj/NS Inj) 105 ml @ 25 mls /hr UNSCH PRN IV SEE LABEL COMMENTS; Start 10/28/16 at 20:45 Iohexol (Omnipaque 350 Inj) 95 ml STK-MED ONCE IV Last administered on 20:55; Start 10/28/16 at 20:55; Stop 10/28/16 at 20:56; Status DC Sodium Chloride (NS Flush) 2 ml UNSCH PRN IV FLUSH FLUSH AFTER USING IV ACCESS ; Start 10/28/16 at 21:45 Sodium Chloride (NS Flush) 2 ml BID IV FLUSH ; Start 10/29/16 at 09:00 Naloxone HCl (Narcan Inj) 0.4 mg UNSCH PRN IV SEE LABEL COMMENTS; Start at 21:45 Cyclobenzaprine HCl (Flexeril) 10 mg Q8H PRN PO muscle spasm; Start 10/28/16 at 23:15 Acetaminophen/ Hydrocodone Bitart ([place] 5-325 Mg) 1 tab Q6H PRN PO pain >5; Start 10/28/16 at 23:15 . Family History Mom and dad with hypertension Dad with MIs . Social History Tobacco: never Alcohol: quit drinking 4 months ago Illicit Drugs: cocaine with last use 5 days ago . Physical Exam Vital Signs Vital Signs Date Time Temp Pulse Resp B/P Pulse Ox O2 Delivery O2 Flow Rate FiO2 10/28/16 19:48 67 18 118/76 97 Room Air 10/28/16 19:09 97.9 83 16 124/78 98 Room Air Physical Exam GENERAL: This is a pleasant male patient, in no apparent distress. SKIN: No rashes, ecchymoses or lesions. Cool and dry. HEAD: Atraumatic. Normocephalic. EYES: No scleral icterus. No injection or drainage. ENT: Nose without bleeding, purulent drainage. NECK: Trachea midline. No JVD or lymphadenopathy. CARDIOVASCULAR: Regular rate and rhythm without murmurs, gallops, or rubs. RESPIRATORY: Clear to auscultation. Breath sounds equal bilaterally. No wheezes , rales, or rhonchi. GASTROINTESTINAL: Abdomen soft, non-tender, nondistended. No guarding. MUSCULOSKELETAL: Extremities without clubbing, cyanosis, or edema. No calf tenderness. Left back/flank area with pain reproduced with palpation. Worsened with rotation of the thorax. No pain with palpation of spine. NEUROLOGICAL: Awake and alert. Motor and sensory grossly within normal limits. Normal speech. . Laboratory Laboratory Tests Test 10/28/16 10/28/16 19:45 20:19 White Blood Count 5.4 Red Blood Count 4.69 Hemoglobin 15.3 Hematocrit 43.7 Mean Corpuscular Volume 93.2 Mean Corpuscular Hemoglobin 32.6 Mean Corpuscular Hemoglobin 35.0 Concent Red Cell Distribution Width 13.1 Platelet Count 169 Mean Platelet Volume 9.2 Neutrophils (%) (Auto) 56.9 Lymphocytes (%) (Auto) 30.1 Monocytes (%) (Auto) 11.3 Eosinophils (%) (Auto) 0.5 Basophils (%) (Auto) 1.2 Neutrophils # (Auto) 3.1 Lymphocytes # (Auto) 1.6 Monocytes # (Auto) 0.6 Eosinophils # (Auto) 0.0 Basophils # (Auto) 0.1 CBC Comment DIFF FINAL Differential Comment Urine Color LIGHT-YELLOW Urine Turbidity CLEAR Urine pH 5.0 Urine Specific [place] 1.029 Urine Protein NEG Urine Glucose (UA) 1000 Urine Ketones 40 Urine Occult Blood NEG Urine Nitrite NEG Urine Bilirubin NEG Urine Urobilinogen LESS THAN 2.0 Urine Leukocyte Esterase NEG Urine RBC LESS THAN 1 Urine WBC 1 Microscopic Urinalysis Comment CULT NOT INDICATED Sodium Level 127 Potassium Level 4.8 Chloride Level 91 Carbon Dioxide Level 16.9 Anion Gap 19 Blood Urea Nitrogen 17 Creatinine 1.40 Estimat Glomerular Filtration 65 Rate Random Glucose 598 Calcium Level 8.9 Phosphorus Level 3.9 Magnesium Level 2.2 Total Bilirubin 0.5 Aspartate Amino Transf 70 (AST/SGOT) Alanine Aminotransferase 82 (ALT/SGPT) Alkaline Phosphatase 64 Total Creatine Kinase 150 Creatine Kinase MB LESS THAN 0.5 Troponin I LESS THAN 0.02 Total Protein 8.2 Albumin 3.4 B-Hydroxybutyrate 6.97 Blood Gas Puncture Site IV Blood Gas Patient Temperature 98.6 Venous Blood pH 7.40 Venous Blood Partial Pressure 28 CO2 Venous Blood Partial Pressure 40 O2 Venous Blood HCO3 17 Venous Blood Oxygen Saturation 75 Venous Blood Oxygen Content 16.4 Venous Blood Base Excess -7.3 Oxygen Delivery Device ROOM AIR Result Diagram: 10/28/16194410/28/161944 Imaging Last Impressions Chest X-Ray 10/28/161943 Signed Impressions: Service Date/Time: Friday, October 28, 2016 20:19 - CONCLUSION: No acute disease. German Malloy MD Head CT 10/28/16 0000 Signed Impressions: Service Date/Time: Friday, October 28, 2016 20:49 - CONCLUSION: Negative noncontrast exam. German Malloy MD Abdomen/Pelvis CT 10/28/16 0000 Signed Impressions: Service Date/Time: Friday, October 28, 2016 20:52 - CONCLUSION: 1. Unremarkable bowel gas pattern with no evidence of obstruction or inflammatory change. 2. Fatty steatosis involving the liver with multiple areas of low attenuation along the region of the falciform ligament which are nonspecific. This can be further evaluated with outpatient MRI with and without contrast. 3. Status post cholecystectomy. German Malloy MD . Assessment and Plan Problem List: (1) DKA (diabetic ketoacidoses) ICD Code: E13.10 Status: Acute (2) Syncope ICD Code: R55 Status: Acute (3) Left flank pain ICD Code: R10.9 Status: Acute Assessment and Plan Mr. Martines is a 51-year-old male with a history of type 2 diabetes mellitus, hepatitis C, and hyperlipidemia who presented to the emergency room on 10/28/2016 for evaluation of a syncopal episode, lightheadedness, and left flank pain. Blood glucose was 598 in the ER. Diabetic Ketoacidosis - Insulin drip - Hypoglycemia protocol - We will transition to basal and sliding scale insulin regimens when patient is tolerating food Syncope - 2-D Echocardiogram to assess cardiac structure and function - Carotid ultrasound to rule out carotid stenosis as a contributing factor - Continuous cardiac telemetry to monitor for cardiac arrhythmias - Negative head CT in ER Left flank pain - likely secondary to muscle strain following fall - CT of abdomen/, shows unremarkable bowel gas pattern with no evidence of obstruction or inflammatory change. Fatty stated ptosis involving the liver with nonspecific areas of low attenuation along the region of the falciform ligament. Outpatient follow-up with MRI (with and without contrast) as recommended by radiologist. - Lortab 5/325 every 6 hours as needed by mouth PRN for for pain - Flexeril 10 milligrams every 8 hours by mouth as needed for muscle spasm GI bleed suspected - consult gastroenterology - Type and screen DVT prophylaxis - chemoprophylaxis contraindicated due to suspected GI bleed - SCDs Written by Esther Oliveira, acting as scribe for Dr. Barrios on 10/28/16 at 22:57. .This note was transcribed by scribe [Esther Oliveira]. I, Dr. Guillermo Barrios personally performed the history, physical exam, and medical decision making; and confirmed the accuracy of the information in the transcribed note. Authenticated by Dr. Guillermo Barrios on 10/28/16 at 22:57. critical care time 30min Discussed Condition With ER physician and patient . Physician Certification 2 Midnight Certification Type: Admission for Inpatient Services Order for Inpatient Services The services are ordered in accordance with Medicare regulations or non- Medicare payer requirements, as applicable. In the case of services not specified as inpatient-only, they are appropriately provided as inpatient services in accordance with the 2-midnight benchmark. Estimated LOS (days): 3 days is the estimated time the patient will need to remain in the hospital, assuming treatment plan goals are met and no additional complications. Post-Hospital Plan: Not yet determined Problem Qualifiers (1) DKA (diabetic ketoacidoses): Qualified Code: E10.10 - Diabetic ketoacidosis without coma associated with type 1 diabetes mellitus (2) Syncope: Qualified Code: R55 - Syncope, unspecified syncope type Esther Oliveira October 28, 2016 23:01 Guillermo Barrios MD October 29, 2016 08:24
[2016-10-28] MEDS ORDERED: ACETAMINOPHEN/HYDROcodone 325 MG/5 MG TAB PO PRN (23:15)
[2016-10-28] MEDS ORDERED: CYCLOBENZAPRINE HCL 10 MG TAB PO PRN (23:15)
[2016-10-28 23:32] VITALS: BP 104/67; PULSE 63; RESP 16; O2SAT 97
[2016-10-28 23:33] LABS: AUTOMATED NEUTROPHIL # 3.2 TH/MM3 (1.8-7.7); BASOPHIL % 0.6 % (0.0-2.0); EOSINOPHIL % 0.5 % (0.0-4.0); HEMATOCRIT 36.5 % (39.0-51.0); LYMPH % 38.3 % (9.0-44.0); LYMPHOCYTE # 2.4 TH/MM3 (1.0-4.8); MEAN CELL VOLUME 90.7 FL (80.0-100.0); MEAN CORPUSCULAR HEMOGLOBIN 32.7 PG (27.0-34.0); MONO % 10.4 % (0.0-8.0); NEUT % 50.2 % (16.0-70.0); PLATELET COUNT 149 TH/MM3 (150-450); RED BLOOD COUNT 4.03 MIL/MM3 (4.50-5.90); RED CELL DISTRIBUTION WIDTH 12.8 % (11.6-17.2); WHITE BLOOD COUNT 6.3 TH/MM3 (4.0-11.0)
[2016-10-28 23:34] LABS: HEMO FLAGS AUTO DIFF
[2016-10-29] VITALS (8 sets, daily range): BP systolic 107–124; BP diastolic 69–78; PULSE 51–65; RESP 16–24; TEMP 96.2–98.1; O2SAT 95–99
[2016-10-29 00:05] LABS: PLATELET ESTIMATE SMEAR NORMAL (NORMAL); PLATELET MORPHOLOGY NORMAL (NORMAL); SCAN/DIFF AUTO DIFF CONFIRMED
[2016-10-29] MEDS: SODIUM CHLOR 0.9% 1000 ML INJ 1,000 ML IV SCH ×4 (00:40→17:41)
[2016-10-29] MEDS: DEXT 5%-NACL 0.9% 1000 ML INJ 1,000 ML IV SCH ×2 (01:44→06:40)
[2016-10-29 02:10] LABS: APTT (PATIENT) 26.1 SEC (24.3-30.1); PROTHROMBIN TIME - PATIENT 11.2 SEC (9.8-11.6)
[2016-10-29 02:23] LABS: BICARBONATE 21.3 MEQ/L (21.0-32.0); POTASSIUM 3.2 MEQ/L (3.5-5.1)
[2016-10-29] MEDS: POTASSIUM CHLOR 20 MEQ PREMIX 100 ML IV PRN ×3 (02:45→06:44)
[2016-10-29] MEDS ORDERED: POTASSIUM CHLORIDE 10 MEQ CONTROLLED RELEASE TAB PO ONE (06:30)
[2016-10-29] MEDS: SODIUM CHLORIDE 0.9% FLUSH 10 ML FLUSH IV FLUSH SCH ×2 (07:57→20:43)
[2016-10-29 08:10] LABS: BETA-HYDROXYBUTYRATE 0.85 MMOL/L (0.00-0.39); BICARBONATE 22.1 MEQ/L (21.0-32.0); POTASSIUM 3.5 MEQ/L (3.5-5.1)
[2016-10-29] MEDS ORDERED: DEXTROSE 50% IN WATER 50 ML VIAL(D50) IV PUSH PRN (08:30)
[2016-10-29] MEDS ORDERED: GLUCAGON 1 MG/ML VIAL OTHER PRN (08:30)
[2016-10-29] MEDS: LISINOPRIL 5 MG TAB PO SCH (08:36)
[2016-10-29] MEDS: ASPIRIN 325 MG TAB PO SCH (08:36)
[2016-10-29] MEDS: ESCITALOPRAM OXALATE 10 MG TAB PO SCH (08:36)
[2016-10-29] MEDS ORDERED: INSULIN DETEMIR 100 UNITS/ML VIAL SQ SCH (09:00)
--- NOTE | 2016-10-29 09:30 | RADRPT ---
EXAM DATE/TIME: 10/29/2016 08:02 [facility] COMPARISON: No previous studies available for comparison. INDICATIONS : Syncope. MEDICAL HISTORY : Hypertension. Diabetes mellitus type 2. Hepatitis C. SURGICAL HISTORY : Cholecystectomy. ENCOUNTER: Initial ACUITY: 1 day PAIN SCORE: 0/10 LOCATION: Bilateral neck PEAK SYSTOLIC VELOCITIES (cm/sec): ICA/CCA RATIO: Right: 0.7 Left: 0.6 ICA: Right: 54 Left: 65 CCA: Right: 82 Left: 107 ECA: Right: 61 Left: 74 VERTEBRAL: Right: 29 antegrade Left: 56 antegrade Elevated flow velocities and ICA/CCA ratios have been found to correlate with increased degrees of vessel stenosis, calculated as percentage of diameter relative to a normal segment of distal ICA/CCA FINDINGS: RIGHT CAROTID: Noncalcified atheromatous plaque of the ICA origin. No significant stenosis is visualized. The wavef orms are within normal limits. LEFT CAROTID: Partially calcified atheromatous plaque of the ICA origin. No significant stenosis is visualized. Th e waveforms are within normal limits. VERTEBRAL ARTERIES: Antegrade flow is seen in both vertebral arteries. MISCELLANEOUS: None. CONCLUSION: 1. Mild plaque without a hemodynamically significant stenosis. 2. Antegrade flow involving both vertebral arteries. Garth Santana Jr., MD on October 29, 2016 at 9:10 Board Certified Radiologist. This report was verified electronically.
[2016-10-29] MEDS: INSULIN ASPART SUPPLEMENTAL SCALE SQ SCH ×3 (11:05→20:44)
--- NOTE | 2016-10-29 11:52 | PD.CONS ---
HPI History of Present Illness This is a 51 year old [gentleman] who came to the hospital yesterday after feeling sick and "passing out." He was foudn to have BG 598 in ER. He has nausea, vomited Wednesday, no blood. He has been having bright red blood intermingled in stool intermittently about once per week for the last few years. He last noticed it 2 days ago. No black tarry stools. Occasional diarrhea that is watery and he is unable/unwilling to qualify further. He had a BM wed and says there was not blood in it. HE denies abdominal pain, constipation, hematemesis, dark tarry stools. Denies NSAID use. Has never had EGD or colonoscopy. He does have hx DMI, hep-c s/p tx. PFSH Past Medical History Insulin dependent -diabetes mellitus since 2006 Hyperlipidemia Hepatitis C Past Surgical History right wrist surgery cholecystectomy wart removal . Coded Allergies: *MDRO Multi-Drug Resistant Organism (Verified Allergy, Unknown, 10/28/16) MRSA Wound 01/2004 Medications Current Medications Medications (Trade) Dose Ordered Sig/Larry Route PRN Reason Start Time Stop Time Status Last Admin Dose Admin Sodium Chloride (NS Flush) 2 ml UNSCH PRN IV FLUSH FLUSH AFTER USING IV ACCESS 10/28/16 21:45 Sodium Chloride (NS Flush) 2 ml BID IV FLUSH 10/29/16 09:00 Naloxone HCl (Narcan Inj) 0.4 mg UNSCH PRN IV SEE LABEL COMMENTS 10/28/16 21:45 Cyclobenzaprine HCl (Flexeril) 10 mg Q8H PRN PO muscle spasm 10/28/16 23:15 Acetaminophen/ Hydrocodone Bitart ([place] 5-325 Mg) 1 tab Q6H PRN PO pain >5 10/28/16 23:15 Aspirin (Aspirin) 325 mg DAILY PO 10/29/16 09:00 10/29/16 08:36 Escitalopram Oxalate (Lexapro) 10 mg DAILY PO 10/29/16 09:00 10/29/16 08:36 Lisinopril (Prinivil) 5 mg DAILY PO 10/29/16 09:00 10/29/16 08:36 Risperidone (risperDAL) 4 mg HS PO 10/29/16 21:00 Dextrose (D50w (Vial) Inj) 25 ml UNSCH PRN IV PUSH HYPOGLYCEMIA-SEE COMMENTS 10/29/16 08:30 Glucagon (Glucagon Inj) 1 mg UNSCH PRN OTHER HYPOGLYCEMIA-SEE COMMENTS 10/29/16 08:30 Insulin Detemir 30 units 30 units Q12HR SQ 10/29/16 09:00 10/29/16 08:37 Sodium Chloride (NS 1000 ml Inj) 1,000 ml @ 100 mls/hr Q10H IV 10/29/16 08:30 10/29/16 08:36 Family History Mom and dad with hypertension Dad with MIs, prostate ca brother - brain aneurysm . Social History Tobacco: never Alcohol: occasional ETOH Illicit Drugs: cocaine with last use 5 days ago . Review of Systems Constitutional: DENIES: Fever Eyes: DENIES: Blurred vision Ears, nose, mouth, throat: DENIES: Hearing loss Respiratory: DENIES: Cough Cardiovascular: DENIES: Chest pain Gastrointestinal: COMPLAINS OF: Bloody stools, Nausea, Vomiting, DENIES: Abdominal pain, Black stools, Constipation, Diarrhea, Hematemesis Genitourinary: DENIES: Hematuria Musculoskeletal: DENIES: Joint pain Integumentary: DENIES: Abnormal pigmentation Hematologic/lymphatic: DENIES: Bruising Neurologic: DENIES: Abnormal gait Psychiatric: DENIES: Confusion GI Exam Vitals I&O Vital Signs Date Time Temp Pulse Resp B/P Pulse Ox O2 Delivery O2 Flow Rate FiO2 10/29/16 08:00 97.8 52 24 108/78 99 10/29/16 08:00 56 10/29/16 06:00 58 10/29/16 04:00 62 10/29/16 02:00 54 10/29/16 00:00 65 10/28/16 23:32 63 16 104/67 97 Room Air 10/28/16 19:48 67 18 118/76 97 Room Air 10/28/16 19:09 97.9 83 16 124/78 98 Room Air I/O 10/28/16 10/28/16 10/28/16 10/29/16 10/29/16 10/29/16 07:00 15:00 23:00 07:00 15:00 23:00 Intake Total 1760 ml Output Total 350 ml Balance 1410 ml Intake IV Total 1760 ml Output Urine Total 350 ml Imaging Last Impressions Carotid Artery Ultrasound 10/29/16 0000 Signed Impressions: Service Date/Time: October 08:02 - CONCLUSION: 1. Mild plaque without a hemodynamically significant stenosis. 2. Antegrade flow involving both vertebral arteries. Garth Santana Jr., MD Chest X-Ray 10/28/16 194 Signed Impressions: Service Date/Time: Friday, October 28, 2016 20:19 - CONCLUSION: No acute disease. German Malloy MD Head CT 10/28/16 0000 Signed Impressions: Service Date/Time: Friday, October 28, 2016 20:49 - CONCLUSION: Negative noncontrast exam. German Malloy MD Abdomen/Pelvis CT 10/28/16 0000 Signed Impressions: Service Date/Time: Friday, October 28, 2016 20:52 - CONCLUSION: 1. Unremarkable bowel gas pattern with no evidence of obstruction or inflammatory change. 2. Fatty steatosis involving the liver with multiple areas of low attenuation along the region of the falciform ligament which are nonspecific. This can be further evaluated with outpatient MRI with and without contrast. 3. Status post cholecystectomy. German Malloy MD Laboratory Test 10/28/16 10/28/16 10/28/16 10/29/16 19:45 20:19 23:15 01:39 White Blood Count 5.4 TH/MM3 6.3 TH/MM3 Red Blood Count 4.69 MIL/MM3 4.03 MIL/MM3 Hemoglobin 15.3 GM/DL 13.2 GM/DL Hematocrit 43.7 % 36.5 % Mean Corpuscular Volume 93.2 FL 90.7 FL Mean Corpuscular Hemoglobin 32.6 PG 32.7 PG Mean Corpuscular Hemoglobin 35.0 % 36.0 % Concent Red Cell Distribution Width 13.1 % 12.8 % Platelet Count 169 TH/MM3 149 TH/MM3 Mean Platelet Volume 9.2 FL 7.7 FL Neutrophils (%) (Auto) 56.9 % 50.2 % Lymphocytes (%) (Auto) 30.1 % 38.3 % Monocytes (%) (Auto) 11.3 % 10.4 % Eosinophils (%) (Auto) 0.5 % 0.5 % Basophils (%) (Auto) 1.2 % 0.6 % Neutrophils # (Auto) 3.1 TH/MM3 3.2 TH/MM3 Lymphocytes # (Auto) 1.6 TH/MM3 2.4 TH/MM3 Monocytes # (Auto) 0.6 TH/MM3 0.7 TH/MM3 Eosinophils # (Auto) 0.0 TH/MM3 0.0 TH/MM3 Basophils # (Auto) 0.1 TH/MM3 0.0 TH/MM3 CBC Comment DIFF FINAL AUTO DIFF Differential Comment AUTO DIFF CONFIRMED Urine Color LIGHT-YELLOW Urine Turbidity CLEAR Urine pH 5.0 Urine Specific [place] 1.029 Urine Protein NEG mg/dL Urine Glucose (UA) 1000 mg/dL Urine Ketones 40 mg/dL Urine Occult Blood NEG Urine Nitrite NEG Urine Bilirubin NEG Urine Urobilinogen LESS THAN 2.0 MG/DL Urine Leukocyte Esterase NEG Urine RBC LESS THAN 1 /hpf Urine WBC 1 /hpf Microscopic Urinalysis Comment CULT NOT INDICATED Sodium Level 127 MEQ/L 141 MEQ/L Potassium Level 4.8 MEQ/L 3.2 MEQ/L Chloride Level 91 MEQ/L 108 MEQ/L Carbon Dioxide Level 16.9 MEQ/L 21.3 MEQ/L Anion Gap 19 MEQ/L 12 MEQ/L Blood Urea Nitrogen 17 MG/DL 12 MG/DL Creatinine 1.40 MG/DL 0.97 MG/DL Estimat Glomerular Filtration 65 ML/MIN 100 ML/MIN Rate Random Glucose 598 MG/DL 163 MG/DL Calcium Level 8.9 MG/DL 8.2 MG/DL Phosphorus Level 3.9 MG/DL 2.7 MG/DL Magnesium Level 2.2 MG/DL 2.0 MG/DL Total Bilirubin 0.5 MG/DL Aspartate Amino Transf 70 U/L (AST/SGOT) Alanine Aminotransferase 82 U/L (ALT/SGPT) Alkaline Phosphatase 64 U/L Total Creatine Kinase 150 U/L Creatine Kinase MB LESS THAN 0.5 NG/ML Troponin I LESS THAN 0.02 NG/ML Total Protein 8.2 GM/DL Albumin 3.4 GM/DL B-Hydroxybutyrate 6.97 MMOL/L Blood Gas Puncture Site IV Blood Gas Patient Temperature 98.6 Venous Blood pH 7.40 Venous Blood Partial Pressure 28 mmHg CO2 Venous Blood Partial Pressure 40 mmHg O2 Venous Blood HCO3 17 mmol/L Venous Blood Oxygen Saturation 75 % Venous Blood Oxygen Content 16.4 Vol % Venous Blood Base Excess -7.3 mmol/L Oxygen Delivery Device ROOM AIR Platelet Estimate NORMAL Platelet Morphology Comment NORMAL Red Cell Morphology Comment NORMAL Prothrombin Time 11.2 SEC Prothromb Time International 1.0 RATIO Ratio Activated Partial 26.1 SEC Thromboplast Time Blood Type A POSITIVE Antibody Screen NEGATIVE Test 10/29/16 07:27 Sodium Level 142 MEQ/L Potassium Level 3.5 MEQ/L Chloride Level 111 MEQ/L Carbon Dioxide Level 22.1 MEQ/L Anion Gap 9 MEQ/L Blood Urea Nitrogen 9 MG/DL Creatinine 1.02 MG/DL Estimat Glomerular Filtration 94 ML/MIN Rate Random Glucose 147 MG/DL Calcium Level 8.2 MG/DL Phosphorus Level 3.0 MG/DL Magnesium Level 2.0 MG/DL B-Hydroxybutyrate 0.85 MMOL/L Physical Examination HEENT: EOMIt; normocephalic; atraumatic; no jaundice. CHEST: Chest is clear to auscultation and percussion. CARDIAC: Regular rate and rhythm with no murmur gallop or rubs. ABDOMEN: Soft, nondistended, nontender; no hepatosplenomegaly; bowel sounds are present in all four quadrants. EXTREMITIES: No clubbing, cyanosis, or edema. SKIN: Normal; no rash; no jaundice. SENIOR BUSINESS PROCESS ANALYST: No focal deficits; alert and oriented times three. Assessment and Plan Plan ASSESSMENT - poss GIB. HH WNL. pt admits intermittent bright red blood intermingled in stool 1 per week on average, comes and goes for last few years. Never had EGD or colonoscopy. Will do colonoscopy. PLAN - colonoscopy tomorrow - obtain consents - clears now - NPO after midnight - monitor HH - further recommendations based on results of above - cessation cocaine - This pt was seen by myself and Dr Marie and this note was written on his behalf Lindsay Barth October 29, 2016 11:52
--- NOTE | 2016-10-29 12:16 | EC ---
Study Study Date:10/29/2016 STUDY CONCLUSIONS SUMMARY - Left ventricle: The cavity size was normal. Wall thickness was normal. Systolic function was normal. The estimated ejection fraction was in the range of 55% to 60%. Wall motion was normal; there were no regional wall motion abnormalities. - Aortic valve: Valve area: 2.13cm^2 (Vmax). If LV function is below 40, please consider prescribing an ACEI or ARB or document rationale for non-use. PROCEDURE DATA STUDY STATUS: Elective. Procedure: Transthoracic echocardiography. Image quality was suboptimal. Scanning was performed from the parasternal, apical, and subcostal acoustic windows. Study completion: The patient tolerated the procedure well. Transthoracic echocardiography. M-mode, complete 2D, complete spectral Doppler, and color Doppler. Height: Height: 70in. Weight: Weight: 194.6lb. Body mass index: BMI: 28kg/m^2. Body surface area: BSA: 2.06m^2. Patient status: Inpatient. CARDIAC ANATOMY LEFT VENTRICLE: The cavity size was normal. Wall thickness was normal. Systolic function was normal. The estimated ejection fraction was in the range of 55% to 60%. Wall motion was normal; there were no regional wall motion abnormalities. AORTIC VALVE: Trileaflet; normal thickness leaflets. Doppler: Transvalvular velocity was within the normal range. There was no stenosis. No regurgitation. Valve area: 2.13cm^2 (Vmax). Indexed valve area: 1.03cm^2/m^2 (Vmax). AORTA: Aortic root: The aortic root was normal in size. MITRAL VALVE: Structurally normal valve. Doppler: Transvalvular velocity was within the normal range. There was no evidence for stenosis. No regurgitation. LEFT ATRIUM: The atrium was normal in size. RIGHT VENTRICLE: The cavity size was normal. Wall thickness was normal. PULMONIC VALVE: Doppler: Transvalvular velocity was within the normal range. There was no evidence for stenosis. No regurgitation. TRICUSPID VALVE: Structurally normal valve. Doppler: Transvalvular velocity was within the normal range. Trace regurgitation. PULMONARY ARTERY: The main pulmonary artery was normal-sized. Systolic pressure was within the normal range. RIGHT ATRIUM: The atrium was normal in size. PERICARDIUM: There was no pericardial effusion. SYSTEMIC VEINS: Inferior vena cava: The vessel was normal in size. Patient weight: 194.6lb _Ejection fraction:_ 65-75% _Fractional shortening:_ 32% up to 5Kg 5-11.5Kg 11.6-22.9Kg 23-45Kg 45-57Kg Aortic Root 7-13 <17 13-22 17-27 17-27 LA diam 6-13 <23 24-38 33-47 37-40 RVID 10-17 7-15 7-15 7-18 8-17 LVIDd 12-22 <32 24-38 33-47 37-40 LVPW 2-4 3-6 5-7 6-8 7-8 IVS 2-4 3-6 5-7 6-8 7-8 BASIC MEASUREMENTS ADULT NORMAL Left ventricle LV internal dimension, ED, chordal 43.3 mm 43-52 level, PLAX LV internal dimension, ES, chordal 30.4 mm 23-38 level, PLAX Fractional shortening, chordal level, 30 % >29 PLAX LV posterior wall thickness, ED 10.4 mm IVS/LVPW ratio, ED 1.05 <1.3 Ventricular septum Septal thickness, ED 10.9 mm Aortic valve Leaflet separation 17 mm 15-26 BASIC MEASUREMENTS ADULT NORMAL Aortic valve Leaflet separation 17 mm 15-26 Aorta Root diameter, ED 31 mm 20-37 Left atrium Anterior-posterior dimension, ES 24 mm 19-40 Anterior-posterior dimension index, ES 1.17 cm/m^2 <2.2 LA/aortic root ratio 0.77 DOPPLER MEASUREMENTS ADULT NORMAL Main pulmonary artery Pressure, S 22 mm Hg =30 Aortic valve Peak velocity, S 117 cm/s Valve area, Vmax 2.13 cm^2 Valve area index, Vmax 1.03 cm^2/m^2 Mitral valve Peak E-wave velocity 68.6 cm/s Peak A-wave velocity 38.5 cm/s Deceleration time 180 ms 150-230 Peak E/A ratio 1.8 Tricuspid valve Regurgitant peak velocity 193 cm/s Peak RV-RA gradient, S 15 mm Hg Maximal regurgitant velocity 193 cm/s Systemic veins Estimated CVP 10 mm Hg Right ventricle RV pressure, S 25 mm Hg <30 Pulmonic valve Peak velocity, S 90.9 cm/s LEGEND: Mean values are shown as u=mean value. Asterisk (*) chen values outside specified normal range. Prepared and signed by Bennie Almanzar [id number]
[2016-10-29 13:22] LABS: BICARBONATE 20.1 MEQ/L (21.0-32.0); POTASSIUM 3.6 MEQ/L (3.5-5.1)
--- NOTE | 2016-10-29 14:38 | HHI.PR ---
Subjective Remarks Mr. Martines is a 51 year old male. He is doing well with treatment for DKA. At baseline he has DM1 and had ran out of his insulin 5 days prior to being admitted for DKA. He is usually well controlled with his last DKA episode about 1 year ago. No other complaints today, just fatigue. Colonoscopy, for reported GI Bleeding is pending for tomorrow. Objective Vital Signs Date Time Temp Pulse Resp B/P Pulse Ox O2 Delivery O2 Flow Rate FiO2 10/29/16 12:00 55 10/29/16 12:00 98.1 55 18 124/69 95 10/29/16 08:00 97.8 52 24 108/78 99 10/29/16 08:00 56 10/29/16 06:00 58 10/29/16 04:00 62 10/29/16 02:00 54 10/29/16 00:00 65 10/28/16 23:32 63 16 104/67 97 Room Air 10/28/16 19:48 67 18 118/76 97 Room Air 10/28/16 19:09 97.9 83 16 124/78 98 Room Air I/O 10/28/16 10/28/16 10/28/16 10/29/16 10/29/16 10/29/16 07:00 15:00 23:00 07:00 15:00 23:00 Intake Total 1760 ml Output Total 350 ml Balance 1410 ml Intake IV Total 1760 ml Output Urine Total 350 ml Result Diagram: 10/28/16 2315 10/29/16 1210 Imaging Last Impressions Carotid Artery Ultrasound 10/29/16 0000 Signed Impressions: Service Date/Time: October 08:02 - CONCLUSION: 1. Mild plaque without a hemodynamically significant stenosis. 2. Antegrade flow involving both vertebral arteries. Garth Santana Jr., MD Chest X-Ray 10/28/16 1944 Signed Impressions: Service Date/Time: Friday, October 28, 2016 20:19 - CONCLUSION: No acute disease. German Malloy MD Head CT 10/28/16 0000 Signed Impressions: Service Date/Time: Friday, October 28, 2016 20:49 - CONCLUSION: Negative noncontrast exam. German Malloy MD Abdomen/Pelvis CT 10/28/16 0000 Signed Impressions: Service Date/Time: Friday, October 28, 2016 20:52 - CONCLUSION: 1. Unremarkable bowel gas pattern with no evidence of obstruction or inflammatory change. 2. Fatty steatosis involving the liver with multiple areas of low attenuation along the region of the falciform ligament which are nonspecific. This can be further evaluated with outpatient MRI with and without contrast. 3. Status post cholecystectomy. German Malloy MD Objective Remarks GENERAL: NAD, A&Ox3 SKIN: Warm and dry. HEAD: Normocephalic. EYES: No scleral icterus. No injection or drainage. NECK: Supple, trachea midline. No JVD or lymphadenopathy. CARDIOVASCULAR: Regular rate and rhythm without murmurs, gallops, or rubs. RESPIRATORY: Breath sounds equal bilaterally. No accessory muscle use. GASTROINTESTINAL: Abdomen soft, non-tender, nondistended. MUSCULOSKELETAL: No cyanosis, or edema. BACK: Nontender without obvious deformity. No CVA tenderness. Medications and IVs Administered Medications Medications (Trade) Dose Ordered Sig/Larry Route PRN Reason Start Time Stop Time Status Last Admin Dose Admin Aspirin (Aspirin) 325 mg DAILY PO 10/29/16 09:00 10/29/16 08:36 Escitalopram Oxalate (Lexapro) 10 mg DAILY PO 10/29/16 09:00 10/29/16 08:36 Lisinopril (Prinivil) 5 mg DAILY PO 10/29/16 09:00 10/29/16 08:36 Insulin Detemir 30 units 30 units Q12HR SQ 10/29/16 09:00 10/29/16 08:37 Sodium Chloride (NS 1000 ml Inj) 1,000 ml @ 100 mls/hr Q10H IV 10/29/16 08:30 10/29/16 08:36 A/P Problem List: (1) DKA (diabetic ketoacidoses) ICD Code: E13.10 (2) Type 1 diabetes mellitus ICD Code: E10.9 (3) Bright red blood per rectum ICD Code: K62.5 Assessment and Plan Assessment and Plan Mr. Martines is a 51 year old male with DM1 admitted with DKA. DKA DM1 Improved Changed from Insulin IV to SQ insulin transitioned from Dextrose IV to NS IV Follow electrolytes Continue hydration Transfer from ICU to Med/Surg Follow blood sugars Insulin Sliding Scale Diabetic Diet GI Bleed GI Following Bleeding resolved Colonoscopy for tomorrow NPO at midnight Hold Levemir insulin Provide NPH at night dose Resume Levemir after colonoscopy Problem Qualifiers (1) DKA (diabetic ketoacidoses): Qualified Code: E10.10 - Diabetic ketoacidosis without coma associated with type 1 diabetes mellitus Lele Todd MD October 29, 2016 14:37
[2016-10-29] MEDS ORDERED: PEG (High)/E-LYTE SOLN 4000 ML BTL PO ONE (16:00)
[2016-10-29 18:29] LABS: HEMOGLOBIN A1a 1.2 %; HEMOGLOBIN Ao 67.6 %; HEMOGLOBIN F 3.9 %; HEMOGLOBIN LA1C 5.8 %; HEMOGLOBIN P3 6.5 %
--- NOTE | 2016-10-29 18:31 | EKG ---
Date Performed: 10/28/2016 Time Performed: 20:32:55 PTAGE: 51 years EKG: SINUS BRADYCARDIA ST ELEVATION, PROBABLY EARLY REPOLARIZATION BORDERLINE ECG Compared to pr ior tracing no significant change PREVIOUS TRACING on 10/03/2016 DOCTOR: Raghav Ledezma Interpretating Date/Time 10/29/2016 18:28:10
[2016-10-29] MEDS ORDERED: INSULIN HUMAN NPH 1,000 UNITS/10 ML VIAL SQ ONE (20:00)
[2016-10-29] MEDS: risperiDONE 1 MG TAB PO SCH (20:43)
[2016-10-30] VITALS (7 sets, daily range): BP systolic 98–160; BP diastolic 54–86; PULSE 53–66; RESP 16–20; TEMP 96.3–97.3; O2SAT 95–99
[2016-10-30] MEDS: SODIUM CHLOR 0.9% 1000 ML INJ 1,000 ML IV SCH ×2 (04:30→14:33)
[2016-10-30] MEDS ORDERED: INSULIN HUMAN REGULAR 1,000 UNITS/10 ML VIAL SQ PRN (04:45)
[2016-10-30] MEDS ORDERED: SODIUM CHLORID 0.9% 500 ML IV PRN (04:45)
[2016-10-30] MEDS ORDERED: CHLORHEXIDINE GLUCONATE 2 % 1 PACK (2 CLOTHS) TOPICAL PRN (04:45)
[2016-10-30] MEDS ORDERED: METOPROLOL TARTRATE 25 MG TAB PO PRN (04:45)
[2016-10-30] MEDS ORDERED: POVIDONE IODINE 5% (ANTISEPSIS KIT) 4 APPLICATIONS EACH NARE PRN (04:45)
[2016-10-30] MEDS ORDERED: LACTATED RINGER'S 1000 ML IV PRN (04:45)
[2016-10-30] MEDS: INSULIN ASPART SUPPLEMENTAL SCALE SQ SCH ×4 (06:27→20:39)
[2016-10-30 08:36] LABS: HEMATOCRIT 37.3 % (39.0-51.0); MEAN CELL VOLUME 92.2 FL (80.0-100.0); MEAN CORPUSCULAR HGB CONC 33.7 % (32.0-36.0); PLATELET COUNT 112 TH/MM3 (150-450); RED BLOOD COUNT 4.05 MIL/MM3 (4.50-5.90); RED CELL DISTRIBUTION WIDTH 13.1 % (11.6-17.2); REVIEW FLAG FINAL; WHITE BLOOD COUNT 4.8 TH/MM3 (4.0-11.0)
[2016-10-30] MEDS: ESCITALOPRAM OXALATE 10 MG TAB PO SCH (08:36)
[2016-10-30] MEDS: ASPIRIN 325 MG TAB PO SCH (08:36)
[2016-10-30] MEDS: LISINOPRIL 5 MG TAB PO SCH (08:36)
[2016-10-30] MEDS: SODIUM CHLORIDE 0.9% FLUSH 10 ML FLUSH IV FLUSH SCH ×2 (08:36→20:38)
[2016-10-30 09:15] LABS: BICARBONATE 25.9 MEQ/L (21.0-32.0); POTASSIUM 3.3 MEQ/L (3.5-5.1)
--- NOTE | 2016-10-30 12:41 | GIPROC ---
[facility] [address] [facility], [address] COLONOSCOPY PROCEDURE REPORT EXAM DATE: 10/30/2016 PATIENT NAME: Christo Martines MR #: [id number] BIRTHDATE: 1965 ENDOSCOPIST: Ashley Marie MD ORDER #: [id number] RIM ROLLER SETTER: Laura Cid and Jackson Grover STATUS: inpatient INDICATIONS: The patient is a 51 yr old male here for a colonoscopy due to hematochezia PROCEDURE PERFORMED: Colonoscopy, diagnostic MEDICATIONS: None and Per Anesthesia. PREP QUALITY: The [place] Bowel Prep Score was Right colon 2, Mid colon 3, and Left colon 3. Total = 8. PREP TYPE:GoLytely ESTIMATED BLOOD LOSS: None CONSENT: The patient understands the risks and benefits of the procedure and understands that these risks include, but are not limited to: sedation, allergic reaction, infection, perforation and/or bleeding. Alternative means of evaluation and treatment include, among others: physical exam, x-rays, and/or surgical intervention. The patient elects to proceed with this endoscopic procedure. medical equipment was checked for proper function. Hand hygiene and appropriate measures for infection prevention was taken. After the risks, benefits and alternatives of the procedure were thoroughly explained, Informed consent was verified, confirmed and timeout was successfully executed by the treatment team. A digital exam revealed external hemorrhoids The Pentax [id number] endoscope was introduced through the anus and advanced to the cecum, which was identified by both the appendix and ileocecal valve. The instrument was then slowly withdrawn as the colon was fully examined. COLON FINDINGS: The colonic mucosa appeared normal. Retroflexed views revealed internal hemorrhoids and Retroflexed views revealed small internal hemorrhoids The scope was then completely withdrawn from the patient and the procedure terminated. PROCEDURE WITHDRAWAL TIME:6minutes ADVERSE EVENTS: There were no complications. IMPRESSIONS: 1. The colonic mucosa appeared normal 2. Retroflexed views revealed internal hemorrhoids 3. Retroflexed views revealed small internal hemorrhoids 4. Revealed external hemorrhoids RECOMMENDATIONS: 1. Yearly hemoccult 2. Gi will sign off RECALL: Return 10 years Colonoscopy Ashley Marie MD eSigned: Ashley Marie MD 10/30/2016 12:40 PM cc:
--- NOTE | 2016-10-30 12:58 | HHI.PR ---
Subjective Remarks Colonoscopy planned for this afternoon. Patient is still not feeling well. Blood sugar disruptions present due to need for altered dosings given NPO status. Objective Vital Signs Date Time Temp Pulse Resp B/P Pulse Ox O2 Delivery O2 Flow Rate FiO2 10/30/16 12:47 50 16 98/63 99 10/30/16 12:43 50 16 97/62 98 10/30/16 12:38 97.8 50 16 100/62 98 10/30/16 11:15 96.5 54 16 110/66 95 10/30/16 08:00 96.5 54 16 110/66 95 10/30/16 04:00 97.3 53 16 98/60 99 10/30/16 00:16 96.4 66 18 106/58 99 10/29/16 20:22 96.2 56 16 117/75 99 10/29/16 17:13 96.8 51 18 107/73 98 I/O 10/29/16 10/29/16 10/29/16 10/30/16 10/30/16 10/30/16 07:00 15:00 23:00 07:00 15:00 23:00 Intake Total 1760 ml 1590 ml 1000 ml 200 ml Output Total 350 ml 550 ml 600 ml Balance 1410 ml 1040 ml 400 ml 200 ml Intake Oral 480 ml 200 ml IV Total 1760 ml 1110 ml 800 ml Other 200 ml Output Urine Total 350 ml 550 ml 600 ml # Voids 2 # Bowel Movements 1 8 Result Diagram: 10/30/16 0729 10/30/16 0729 Objective Remarks GENERAL: NAD, A&Ox3 SKIN: Warm and dry. HEAD: Normocephalic. EYES: No scleral icterus. No injection or drainage. NECK: Supple, trachea midline. No JVD or lymphadenopathy. CARDIOVASCULAR: Regular rate and rhythm without murmurs, gallops, or rubs. RESPIRATORY: Breath sounds equal bilaterally. No accessory muscle use. GASTROINTESTINAL: Abdomen soft, non-tender, nondistended. MUSCULOSKELETAL: No cyanosis, or edema. BACK: Nontender without obvious deformity. No CVA tenderness. A/P Problem List: (1) DKA (diabetic ketoacidoses) ICD Code: E13.10 (2) Type 1 diabetes mellitus ICD Code: E10.9 (3) Bright red blood per rectum ICD Code: K62.5 Assessment and Plan Assessment and Plan Mr. Martines is a 51 year old male with DM1 admitted with DKA. DKA is resolved Post DKA fatigue, malaise, and pain are present Further hydration and better blood sugar control planned prior to discharge Colonoscopy today DKA DM1 Improved Changed from Insulin IV to SQ insulin transitioned from Dextrose IV to NS IV Follow electrolytes Continue hydration Transfer from ICU to Med/Surg Follow blood sugars Insulin Sliding Scale Diabetic Diet GI Bleed GI Following Bleeding resolved Colonoscopy for tomorrow NPO at midnight Hold Levemir insulin Provide NPH at night dose Resume Levemir after colonoscopy Problem Qualifiers (1) DKA (diabetic ketoacidoses): Qualified Code: E10.10 - Diabetic ketoacidosis without coma associated with type 1 diabetes mellitus Llee Todd MD October 30, 2016 12:58
[2016-10-30] MEDS ORDERED: PROPOFOL 200 MG/20 ML AMP IV ONE (13:00)
[2016-10-30] MEDS: risperiDONE 1 MG TAB PO SCH (20:38)
[2016-10-30] MEDS: INSULIN DETEMIR 100 UNITS/ML VIAL SQ SCH (20:38)
[2016-10-31] VITALS (7 sets, daily range): BP systolic 85–103; BP diastolic 56–64; PULSE 54–66; RESP 17–20; TEMP 95.9–97; O2SAT 97–98
[2016-10-31] MEDS: SODIUM CHLOR 0.9% 1000 ML INJ 1,000 ML IV SCH ×2 (00:29→10:30)
[2016-10-31] MEDS: INSULIN ASPART SUPPLEMENTAL SCALE SQ SCH ×4 (06:09→21:23)
[2016-10-31] MEDS: LISINOPRIL 5 MG TAB PO SCH (07:44)
[2016-10-31] MEDS: ASPIRIN 325 MG TAB PO SCH (07:44)
[2016-10-31] MEDS: ESCITALOPRAM OXALATE 10 MG TAB PO SCH (07:44)
[2016-10-31] MEDS: SODIUM CHLORIDE 0.9% FLUSH 10 ML FLUSH IV FLUSH SCH ×2 (07:45→21:00)
[2016-10-31] MEDS: INSULIN DETEMIR 100 UNITS/ML VIAL SQ SCH (07:45)
[2016-10-31] MEDS ORDERED: POTASSIUM CHLORIDE 10 MEQ CONTROLLED RELEASE TAB PO ONE (08:45)
[2016-10-31 09:09] LABS: HEMATOCRIT 37.1 % (39.0-51.0); MEAN CORPUSCULAR HEMOGLOBIN 32.3 PG (27.0-34.0); MEAN CORPUSCULAR HGB CONC 35.1 % (32.0-36.0); PLATELET COUNT 106 TH/MM3 (150-450); RED BLOOD COUNT 4.04 MIL/MM3 (4.50-5.90); RED CELL DISTRIBUTION WIDTH 13.1 % (11.6-17.2); REVIEW FLAG FINAL; WHITE BLOOD COUNT 4.3 TH/MM3 (4.0-11.0)
[2016-10-31 09:58] LABS: BICARBONATE 24.9 MEQ/L (21.0-32.0); POTASSIUM 3.3 MEQ/L (3.5-5.1)
--- NOTE | 2016-10-31 15:10 | HHI.PR ---
Subjective Remarks No findings of concern on colonosocpy. Bleed was likely secondary to hemorrhoids. He has controlled blood sugars in the morning, but demostrates lack of control through time during the day. Presently his blood sugars are 355 and it appears that Lantus is not his best option due to the discrepancy of nocturnal and daytime readings. He will likely gain better control by dividing those dosings via an NPH insulin, so this will be started and was discussed with the patient who is in agreement. Objective Vital Signs Date Time Temp Pulse Resp B/P Pulse Ox O2 Delivery O2 Flow Rate FiO2 10/31/16 12:00 97.0 57 17 103/56 97 10/31/16 08:00 96.2 56 17 103/64 97 10/31/16 04:00 95.9 66 20 85/63 98 10/31/16 00:00 96.5 59 20 94/63 98 10/30/16 20:00 96.8 58 20 102/62 97 10/30/16 16:00 96.5 53 16 111/72 98 I/O 10/30/16 10/30/16 10/30/16 10/31/16 10/31/16 10/31/16 07:00 15:00 23:00 07:00 15:00 23:00 Intake Total 1000 ml 920 ml 240 ml 1300 ml Output Total 600 ml 950 ml Balance 400 ml 920 ml 240 ml 350 ml Intake Oral 200 ml 720 ml 240 ml 120 ml IV Total 800 ml 1000 ml Other 200 ml 180 ml Output Urine Total 600 ml 950 ml # Voids 2 3 2 1 # Bowel Movements 8 2 0 Result Diagram: 10/31/16 0832 10/31/16 0832 Objective Remarks GENERAL: NAD, A&Ox3 SKIN: Warm and dry. HEAD: Normocephalic. EYES: No scleral icterus. No injection or drainage. NECK: Supple, trachea midline. No JVD or lymphadenopathy. CARDIOVASCULAR: Regular rate and rhythm without murmurs, gallops, or rubs. RESPIRATORY: Breath sounds equal bilaterally. No accessory muscle use. GASTROINTESTINAL: Abdomen soft, non-tender, nondistended. MUSCULOSKELETAL: No cyanosis, or edema. BACK: Nontender without obvious deformity. No CVA tenderness. A/P Problem List: (1) DKA (diabetic ketoacidoses) ICD Code: E13.10 (2) Type 1 diabetes mellitus ICD Code: E10.9 (3) Bright red blood per rectum ICD Code: K62.5 Assessment and Plan Assessment and Plan Mr. Martines is a 51 year old male with DM1 admitted with DKA. DKA is resolved Feeling better Blood sugars as of yet uncontrolled despite a high than baseline dosing of Detemir (Lantus equivelent) dosing. Stop Lantus Start NPH, 45 units Qam, 15units Qpm and monitor another 24 hours with further adjustments if needed Given he is type 1 he needs tighter control to avoid relapses into DKA. DKA DM1 Uncontrolled Stop IV Hydration Follow electrolytes Continue hydration Follow blood sugars Insulin Sliding Scale Diabetic Diet GI Bleed GI Following Bleeding resolved Colonoscopy shows a hemorrhoid Problem Qualifiers (1) DKA (diabetic ketoacidoses): Qualified Code: E10.10 - Diabetic ketoacidosis without coma associated with type 1 diabetes mellitus Lele Todd MD October 31, 2016 15:10
[2016-10-31] MEDS ORDERED: INSULIN HUMAN NPH 1,000 UNITS/10 ML VIAL SQ SCH (17:00)
[2016-10-31] MEDS: risperiDONE 1 MG TAB PO SCH (21:23)
[2016-11-01] VITALS (7 sets, daily range): BP systolic 94–106; BP diastolic 57–71; PULSE 53–96; RESP 18–20; TEMP 96.5–98.3; O2SAT 93–99
[2016-11-01] MEDS: INSULIN ASPART SUPPLEMENTAL SCALE SQ SCH ×4 (06:00→22:48)
[2016-11-01 06:55] LABS: BICARBONATE 27.9 MEQ/L (21.0-32.0); POTASSIUM 3.4 MEQ/L (3.5-5.1)
[2016-11-01] MEDS ORDERED: INSULIN HUMAN NPH 1,000 UNITS/10 ML VIAL SQ SCH ×3 (08:00→17:00)
[2016-11-01] MEDS: LISINOPRIL 5 MG TAB PO SCH (08:19)
[2016-11-01] MEDS: ESCITALOPRAM OXALATE 10 MG TAB PO SCH (08:19)
[2016-11-01] MEDS: ASPIRIN 325 MG TAB PO SCH (08:19)
[2016-11-01] MEDS: SODIUM CHLORIDE 0.9% FLUSH 10 ML FLUSH IV FLUSH SCH ×2 (08:21→22:46)
--- NOTE | 2016-11-01 13:45 | HHI.PR ---
Subjective Remarks Blood sugars remain uncontrolled. His lack of response to insulin suggests insulin resistance in addition to DM1. This lack of control is likely the etiology for his DKA and he will do better if better control is obtained prior to discharge, because at the numbers he has (345 currently), and given he has DM1, he is at risk for a relapse of DKA in an uncontrolled state. Objective Vital Signs Date Time Temp Pulse Resp B/P Pulse Ox O2 Delivery O2 Flow Rate FiO2 11/01/16 12:00 98.0 59 18 94/58 93 11/01/16 08:08 97.6 68 20 106/61 95 11/01/16 04:00 97.9 96 20 96/66 96 11/01/16 00:00 98.3 60 20 97/62 97 10/31/16 20:00 95.9 60 20 91/56 97 10/31/16 19:00 54 10/31/16 16:00 96.9 58 17 100/59 98 I/O 10/31/16 10/31/16 10/31/16 11/01/16 11/01/16 11/01/16 07:00 15:00 23:00 07:00 15:00 23:00 Intake Total 1300 ml 720 ml 240 ml Output Total 950 ml Balance 350 ml 720 ml 240 ml Intake Oral 120 ml 720 ml 240 ml IV Total 1000 ml Other 180 ml Output Urine Total 950 ml # Voids 1 1 1 2 # Bowel Movements 0 0 0 Result Diagram: 10/31/16 0832 11/01/16 0615 Objective Remarks GENERAL: NAD, A&Ox3 SKIN: Warm and dry. HEAD: Normocephalic. EYES: No scleral icterus. No injection or drainage. NECK: Supple, trachea midline. No JVD or lymphadenopathy. CARDIOVASCULAR: Regular rate and rhythm without murmurs, gallops, or rubs. RESPIRATORY: Breath sounds equal bilaterally. No accessory muscle use. GASTROINTESTINAL: Abdomen soft, non-tender, nondistended. MUSCULOSKELETAL: No cyanosis, or edema. BACK: Nontender without obvious deformity. No CVA tenderness. A/P Problem List: (1) DKA (diabetic ketoacidoses) ICD Code: E13.10 (2) Type 1 diabetes mellitus ICD Code: E10.9 (3) Bright red blood per rectum ICD Code: K62.5 Assessment and Plan Assessment and Plan Mr. Martines is a 51 year old male with DM1 admitted with DKA. DKA is resolved Blood sugars as of yet uncontrolled despite NPH at matched dosing to his prior levemir. Blood sugars are controlled nocturnally (had resisdual levemir in addition to NPH last night), but not during the day. Adjust NPH, 60 units Qam, 25 units Qpm and monitor another 24 hours with further adjustments if needed Given he is type 1 he needs tighter control to avoid relapses into DKA. DKA DM1 Uncontrolled Stop IV Hydration Follow electrolytes Continue hydration Follow blood sugars Insulin Sliding Scale Diabetic Diet GI Bleed GI Following Bleeding resolved Colonoscopy shows a hemorrhoid Problem Qualifiers (1) DKA (diabetic ketoacidoses): Qualified Code: E10.10 - Diabetic ketoacidosis without coma associated with type 1 diabetes mellitus Lele Todd MD November 01, 2016 13:45
[2016-11-01] MEDS: risperiDONE 1 MG TAB PO SCH (22:47)
[2016-11-02] VITALS (7 sets, daily range): BP systolic 98–111; BP diastolic 60–72; PULSE 47–56; RESP 18–20; TEMP 96–97.6; O2SAT 96–100
[2016-11-02] MEDS: INSULIN ASPART SUPPLEMENTAL SCALE SQ SCH ×4 (06:14→21:21)
[2016-11-02] MEDS ORDERED: INSULIN HUMAN NPH 1,000 UNITS/10 ML VIAL SQ SCH ×2 (08:00→17:00)
[2016-11-02] MEDS: LISINOPRIL 5 MG TAB PO SCH (09:14)
[2016-11-02] MEDS: SODIUM CHLORIDE 0.9% FLUSH 10 ML FLUSH IV FLUSH SCH ×2 (09:14→21:15)
[2016-11-02] MEDS: ESCITALOPRAM OXALATE 10 MG TAB PO SCH (09:14)
[2016-11-02] MEDS: ASPIRIN 325 MG TAB PO SCH (09:14)
--- NOTE | 2016-11-02 10:50 | HHI.PR ---
Subjective Remarks Improved blood sugar control thus far today. If stability continues he will soon be safe for discharge. No new complaints from the patient today. Objective Vital Signs Date Time Temp Pulse Resp B/P Pulse Ox O2 Delivery O2 Flow Rate FiO2 11/02/16 08:20 96.0 52 20 102/63 96 11/02/16 06:25 97.3 56 20 99/60 100 11/02/16 00:00 96.9 54 20 111/65 99 11/01/16 20:00 97.5 53 20 103/71 99 11/01/16 19:55 55 11/01/16 16:08 96.5 56 20 94/57 97 11/01/16 12:00 98.0 59 18 94/58 93 I/O 11/01/16 11/01/16 11/01/16 11/02/16 11/02/16 11/02/16 06:59 14:59 22:59 06:59 14:59 22:59 Intake Total 840 ml Balance 840 ml Intake Oral 840 ml # Voids 2 5 1 # Bowel Movements 0 0 0 Result Diagram: 10/31/16 0832 11/01/16 0615 Objective Remarks GENERAL: NAD, A&Ox3 SKIN: Warm and dry. HEAD: Normocephalic. EYES: No scleral icterus. No injection or drainage. NECK: Supple, trachea midline. No JVD or lymphadenopathy. CARDIOVASCULAR: Regular rate and rhythm without murmurs, gallops, or rubs. RESPIRATORY: Breath sounds equal bilaterally. No accessory muscle use. GASTROINTESTINAL: Abdomen soft, non-tender, nondistended. MUSCULOSKELETAL: No cyanosis, or edema. BACK: Nontender without obvious deformity. No CVA tenderness. A/P Problem List: (1) DKA (diabetic ketoacidoses) ICD Code: E13.10 (2) Type 1 diabetes mellitus ICD Code: E10.9 (3) Bright red blood per rectum ICD Code: K62.5 Assessment and Plan Assessment and Plan Mr. Martines is a 51 year old male with DM1 admitted with DKA. DKA is resolved Working on Blood sugar control today. Adjust NPH, 60 units Qam, 30 units Qpm and monitor another 24 hours with further adjustments if needed Given he is type 1 he needs tighter control to avoid relapses into DKA. DKA DM1 Uncontrolled Stop IV Hydration Follow electrolytes Continue hydration Follow blood sugars Insulin Sliding Scale Diabetic Diet GI Bleed GI Following Bleeding resolved Colonoscopy shows a hemorrhoid Problem Qualifiers (1) DKA (diabetic ketoacidoses): Qualified Code: E10.10 - Diabetic ketoacidosis without coma associated with type 1 diabetes mellitus Lele Todd MD November 02, 2016 10:50
[2016-11-02] MEDS: risperiDONE 1 MG TAB PO SCH (21:14)
[2016-11-03] VITALS: BP 118/72; PULSE 57; RESP 18; TEMP 96.9; O2SAT 98
[2016-11-03 04:00] VITALS: BP 98/63; PULSE 59; RESP 18; TEMP 96.7; O2SAT 96
[2016-11-03] MEDS: INSULIN ASPART SUPPLEMENTAL SCALE SQ SCH ×4 (06:11→20:54)
[2016-11-03] MEDS ORDERED: INSULIN HUMAN NPH 1,000 UNITS/10 ML VIAL SQ SCH (08:00)
[2016-11-03] MEDS: ASPIRIN 325 MG TAB PO SCH (08:05)
[2016-11-03] MEDS: ESCITALOPRAM OXALATE 10 MG TAB PO SCH (08:05)
[2016-11-03] MEDS: LISINOPRIL 5 MG TAB PO SCH (08:05)
[2016-11-03] MEDS: SODIUM CHLORIDE 0.9% FLUSH 10 ML FLUSH IV FLUSH SCH ×2 (08:06→21:04)
[2016-11-03 08:17] VITALS: BP 95/59; PULSE 53; RESP 20; TEMP 95.5; O2SAT 96
[2016-11-03 12:44] VITALS: BP 95/54; PULSE 53; RESP 20; TEMP 96; O2SAT 96
[2016-11-03] MEDS ORDERED: DEXTROSE 50% IN WATER 50 ML VIAL(D50) IV PUSH PRN (16:00)
[2016-11-03] MEDS ORDERED: ACETAMIN 325 MG/BUTALBITAL 50 MG/CAFFEINE 40 MG TAB PO PRN (16:00)
[2016-11-03] MEDS ORDERED: GLUCAGON 1 MG/ML VIAL OTHER PRN (16:00)
--- NOTE | 2016-11-03 16:03 | HHI.PR ---
Subjective Remarks Follow up for GI bleed, DKA. Patient is doing well. No acute concerns. No fever , chills. Objective Vitals Vital Signs Date Time Temp Pulse Resp B/P Pulse Ox O2 Delivery O2 Flow Rate FiO2 11/03/16 12:44 96.0 53 20 95/54 96 11/03/16 08:17 95.5 53 20 95/59 96 11/03/16 04:00 96.7 59 18 98/63 96 11/03/16 00:00 96.9 57 18 118/72 98 11/02/16 20:00 97.6 53 18 110/72 98 11/02/16 16:45 96.0 50 18 98/63 97 I/O 11/02/16 11/02/16 11/02/16 11/03/16 11/03/16 11/03/16 07:00 15:00 23:00 07:00 15:00 23:00 Intake Total 480 ml 480 ml Balance 480 ml 480 ml Intake Oral 480 ml 480 ml # Voids 1 5 3 # Bowel Movements 0 Result Diagram: 10/31/16 0832 11/01/16 0615 Imaging Last Impressions Carotid Artery Ultrasound 10/29/16 0000 Signed Impressions: Service Date/Time: October 08:02 - CONCLUSION: 1. Mild plaque without a hemodynamically significant stenosis. 2. Antegrade flow involving both vertebral arteries. Garth Santana Jr., MD Chest X-Ray 10/28/161943 Signed Impressions: Service Date/Time: Friday, October 28, 2016 20:19 - CONCLUSION: No acute disease. German Malloy MD Head CT 10/28/16 0000 Signed Impressions: Service Date/Time: Friday, October 28, 2016 20:49 - CONCLUSION: Negative noncontrast exam. German Malloy MD Abdomen/Pelvis CT 10/28/16 0000 Signed Impressions: Service Date/Time: Friday, October 28, 2016 20:52 - CONCLUSION: 1. Unremarkable bowel gas pattern with no evidence of obstruction or inflammatory change. 2. Fatty steatosis involving the liver with multiple areas of low attenuation along the region of the falciform ligament which are nonspecific. This can be further evaluated with outpatient MRI with and without contrast. 3. Status post cholecystectomy. German Malloy MD Objective Remarks GENERAL: Alert, Oriented x 3, NAD. SKIN: Warm and dry. HEAD: Normocephalic. EYES: No scleral icterus. No injection or drainage. NECK: Supple, trachea midline. No JVD or lymphadenopathy. CARDIOVASCULAR: Regular rate and rhythm without murmurs, gallops, or rubs. RESPIRATORY: Breath sounds equal bilaterally. No accessory muscle use. GASTROINTESTINAL: Abdomen soft, non-tender, nondistended. MUSCULOSKELETAL: No cyanosis, or edema. BACK: Nontender without obvious deformity. No CVA tenderness. Procedures colonoscopy IMPRESSIONS: 1. The colonic mucosa appeared normal 2. Retroflexed views revealed internal hemorrhoids 3. Retroflexed views revealed small internal hemorrhoids 4. Revealed external hemorrhoids A/P Problem List: (1) DKA (diabetic ketoacidoses) ICD Code: E13.10 Status: Acute (2) Syncope ICD Code: R55 Status: Acute (3) Left flank pain ICD Code: R10.9 Status: Acute Assessment and Plan Mr. Martines is a 51 year old male with DM1 admitted with DKA. - Diabetic ketoacidosis - Diabetes mellitus - Patient prefers to be on Lantus. He was on Lantus 30units BID. - Will switch patient from NPH to Levemir 25 units QHS. Also add pre-meal insulin (Aspart) and sliding scale insulin. - If blood glucose reasonably controlled, patient can be discharged in the morning. GI Bleed GI Following Bleeding resolved Colonoscopy shows a hemorrhoid Full code. Ambulation Problem Qualifiers (1) DKA (diabetic ketoacidoses): Qualified Code: E10.10 - Diabetic ketoacidosis without coma associated with type 1 diabetes mellitus (2) Syncope: Qualified Code: R55 - Syncope, unspecified syncope type Roni Peterson DO November 03, 2016 4:03 pm
[2016-11-03 16:18] VITALS: BP 87/54; PULSE 54; RESP 20; TEMP 96.4; O2SAT 98
[2016-11-03] MEDS: INSULIN ASPART 1,000 UNITS/10 ML VIAL SQ SCH (18:22)
[2016-11-03 20:00] VITALS: BP 93/51; PULSE 58; RESP 18; TEMP 96.4; O2SAT 96
[2016-11-03] MEDS: risperiDONE 1 MG TAB PO SCH (20:48)
[2016-11-03] MEDS: ACETAMINOPHEN 325 MG TAB PO PRN (20:49)
[2016-11-03] MEDS ORDERED: INSULIN DETEMIR 100 UNITS/ML VIAL SQ SCH (21:00)
[2016-11-04] VITALS: BP 92/54; PULSE 54; RESP 18; TEMP 97.3; O2SAT 97
[2016-11-04 04:00] VITALS: BP 97/52; PULSE 62; RESP 18; TEMP 96.7; O2SAT 96
[2016-11-04] MEDS: INSULIN ASPART SUPPLEMENTAL SCALE SQ SCH ×2 (07:00→12:20)
[2016-11-04 08:15] VITALS: BP 84/51; PULSE 54; RESP 18; TEMP 95.8; O2SAT 97
[2016-11-04] MEDS: ESCITALOPRAM OXALATE 10 MG TAB PO SCH (08:21)
[2016-11-04] MEDS: ACETAMINOPHEN 325 MG TAB PO PRN (08:22)
[2016-11-04] MEDS: LISINOPRIL 5 MG TAB PO SCH (08:22)
[2016-11-04] MEDS: INSULIN ASPART 1,000 UNITS/10 ML VIAL SQ SCH ×2 (08:28→12:21)
[2016-11-04] MEDS: SODIUM CHLORIDE 0.9% FLUSH 10 ML FLUSH IV FLUSH SCH (08:31)
[2016-11-04] MEDS ORDERED: ASPIRIN 81 MG CHEW TAB PO SCH (09:00)
[2016-11-04] MEDS ORDERED: SODIUM CHLOR 0.9% 1000 ML INJ 1,000 ML IV ONE (09:30)
[2016-11-04 12:07] VITALS: BP 99/58; PULSE 56; RESP 18; TEMP 95.8; O2SAT 96
[2016-11-04] MEDS ORDERED: BUTA1CAP PO (14:52)
[2016-11-04] MEDS ORDERED: NOVOLOGP2 SQ ×2 (14:52)
[2016-11-04] MEDS ORDERED: LANTUS2P SQ (14:52)
--- NOTE | 2016-11-04 14:53 | HHI.DS ---
Discharge Summary Admission Date October 28, 2016 at 21:34 Discharge Date: November 04, 2016 Admitting Diagnosis DKA, syncope (1) DKA (diabetic ketoacidoses) ICD Code: E13.10 Diagnosis: Principal (2) Syncope ICD Code: R55 (3) Left flank pain ICD Code: R10.9 (4) Type 2 diabetes mellitus ICD Code: E11.9 (5) GI bleed ICD Code: K92.2 Diagnosis: Principal Procedures colonoscopy IMPRESSIONS: 1. The colonic mucosa appeared normal 2. Retroflexed views revealed internal hemorrhoids 3. Retroflexed views revealed small internal hemorrhoids 4. Revealed external hemorrhoids Brief History - From Admission Mr. Martines is a 51-year-old male with a history of type 2 diabetes mellitus, hepatitis C, and hyperlipidemia who presented to the emergency room on 10/28/2016 for evaluation of a syncopal episode, lightheadedness, and left flank pain. Blood glucose was 598 in the ER. Mr. Martines is seen in the ER. He reports the following: Dizziness, lightheadedness, nausea, vomited for the past few days with a single syncopal episode today - denies chest pain, shortness of breath, diaphoresis, or nausea/vomiting prior to syncope - denies confusion post-syncopal episode; denies urine or fecal incontinence, denies unilateral weakness - episode occurred at 10 a.m. then he rested at home - was dizzy and left side of back was hurting - was able to get up and go to bathroom etc.- at 4 p.m. he decided to come to ER because his back was hurting and suspected his blood sugar was high (felt like it was high but didn't measure it) dizziness occurs when standing up Red blood in stool a few days ago - on toilet paper - occurred a couple of times - no history of hemorrhoids Denies black or red vomit No dysuria or hematuria Reports severe aching left back/flank pain worsened with movement and touch. Denies hypertension, CAD, CHF, irregular heart rhythms, breathing problems: copd asthma, kidney problems, seizures, thyroid, cancer, prostate problems, or problems with blood clots such as PE, DVT, or CVA hepatitis C 2007 - treated Never had colonoscopy or panendoscopy CBC/BMP: 10/31/16 0832 11/01/16 0615 Imaging Last Impressions Carotid Artery Ultrasound 10/29/16 0000 Signed Impressions: Service Date/Time: October 08:02 - CONCLUSION: 1. Mild plaque without a hemodynamically significant stenosis. 2. Antegrade flow involving both vertebral arteries. Garth Snatana Jr., MD Chest X-Ray 10/28/16 194 Signed Impressions: Service Date/Time: Friday, October 28, 2016 20:19 - CONCLUSION: No acute disease. German Malloy MD Head CT 10/28/16 0000 Signed Impressions: Service Date/Time: Friday, October 28, 2016 20:49 - CONCLUSION: Negative noncontrast exam. German Malloy MD Abdomen/Pelvis CT 10/28/16 0000 Signed Impressions: Service Date/Time: Friday, October 28, 2016 20:52 - CONCLUSION: 1. Unremarkable bowel gas pattern with no evidence of obstruction or inflammatory change. 2. Fatty steatosis involving the liver with multiple areas of low attenuation along the region of the falciform ligament which are nonspecific. This can be further evaluated with outpatient MRI with and without contrast. 3. Status post cholecystectomy. German Malloy MD PE at Discharge GENERAL: Alert, Oriented x 3, NAD. SKIN: Warm and dry. HEAD: Normocephalic. EYES: No scleral icterus. No injection or drainage. NECK: Supple, trachea midline. No JVD or lymphadenopathy. CARDIOVASCULAR: Regular rate and rhythm without murmurs, gallops, or rubs. RESPIRATORY: Breath sounds equal bilaterally. No accessory muscle use. GASTROINTESTINAL: Abdomen soft, non-tender, nondistended. MUSCULOSKELETAL: No cyanosis, or edema. BACK: Nontender without obvious deformity. No CVA tenderness. Pt update on day of discharge Patient is doing well. No acute concerns. No fever, chills. Hospital Course Mr. Martines is a 51 year old male with DM1 admitted with DKA. - Diabetic ketoacidosis - Diabetes mellitus - Patient prefers to be on Lantus. He was on Lantus 30units BID. - Will switch patient from NPH to Levemir 25 units QHS. Also add pre-meal insulin (Aspart) and sliding scale insulin. - If blood glucose reasonably controlled, patient can be discharged in the morning. GI Bleed GI Following Bleeding resolved Colonoscopy shows a hemorrhoid Pt Condition on Discharge: Good Discharge Disposition: Discharge Home Discharge Time: > 30 minutes Discharge Instructions DIET: Follow Instructions for: Diabetic Diet Activities you can perform: Regular-No Restrictions Follow up Referrals: PCP Follow-up - 1 Week New Medications: Aspirin DR (Aspirin EC) 81 Mg Tabdr 81 MG PO DAILY Blood Clot Prevention #90 Ref 0 TAB Nmlzraiged-Upsaggsvjmetd-Snzrfyki (Fioricet) 50-300-40 Mg Cap 1 CAP PO Q6HR PRN HEADACHE #15 Ref 0 CAP Insulin Aspart Inj (Novolog Inj) 1,000 Unit/10 Ml Vial 1-9 UNITS SQ ACHS Max dose at bedtime:( )units; sugars less than 70,(0)units; sugars 150-199,(1) unit; sugars 200-249,(3) units; sugars 250-299,(5) units; sugars 300-349,(7) units; sugars greater than 349,(9) units Blood Sugar Management #10 Ref 0 ML Insulin Aspart Inj (Novolog Inj) 1,000 Unit/10 Ml Vial 5 UNITS SQ TIDAC HOLD if pre-meal glucose < 110 Blood Sugar Management #10 Ref 0 ML Changed Medications: Insulin Glargine Inj (Lantus Inj) 1,000 Unit/10 Ml Vial 25 UNITS SQ HS Blood Sugar Management #1 Ref 2 VIAL (Changed from: 30 UNITS; BID ) Continued Medications: Escitalopram (Lexapro) 10 Mg Tab 10 MG PO DAILY #30 Ref 0 TAB Lisinopril (Lisinopril) 5 Mg Tab 5 MG PO DAILY Blood Pressure Management #30 Ref 0 TAB Methocarbamol (Robaxin) 750 Mg Tab 750 MG PO Q8HR Muscle Spasm #21 Ref 0 TAB Risperidone (Risperdal) 4 Mg Tab 4 MG PO HS #30 Ref 0 TAB Discontinued Medications: Aspirin (Aspirin) 325 Mg Tab 325 MG PO DAILY #30 Ref 0 TAB Insulin Human Regular Inj (Humulin R Inj) 1,000 Unit/10 Ml Vial 2-12 UNITS SQ ACHS Max dose at bedtime:( )units; sugars < 70 (0)units; sugars 150-199, (2)units; sugars 200-249,(4)units; sugars 250-299, (7)units; sugars 300 -349,(10)units; sugars more than 349,(12)units. Blood Sugar Management #1 Ref 2 ML Roni Peterson DO November 04, 2016 14:53
[2016-11-04] MEDS ORDERED: ASPI81TA11 PO (14:54)
--- NOTE | 2016-11-09 13:38 | PQ ---
Physician Query Response Document PATIENT: SIMONE ORO : 1965 ADMIT DATE: 10/28/2016 9:34 PM DISCH DATE: 11/04/2016 3:40 PM RESPONDING PROVIDER #: [email or web address] QUERY TEXT: Conflicting Documentation Clarification A single mention or documentation of multiple diagnoses for the same clinical presentation appears in the record. Please clarify the diagnosis/diagnoses: Type 1 vs Type 2 diabetes mellitus. Please also document if the condition is: -- Confirmed and current -- Confirmed, treated and resolved -- Ruled out -- Other, please specify If you have any additional questions/comments and/or concerns, please do not hesitate to reach out to the CDI/Coding Hotline, Ext. [phone]. The patient's Clinical Indicators include: H (1) DKA (diabetic ketoacidoses) History of Present Illness : is a 51-year-old male with a history of type 2 diabetes mellitus Past Medical History : Type 2 diabetes mellitus since 2006 ED Record: History of Present Illness: 51-year-old male with history of insulin dependent diabetes. He has not taken his insulin in the last 4 days because he ran out. Progress Note 11/01/16: Blood sugars remain uncontrolled. His lack of response to insulin suggests ins ulin resistance in addition to DM1. This lack of control is likely the etiology for his DKA and he wi ll do better if better control is obtained prior to discharge, because at the numbers he has (345 cur rently), and given he has DM1, he is at risk for a relapse of DKA in an uncontrolled state. Discharge Summary: (1) DKA (diabetic ketoacidoses) ICD Code: E13.10 Brief History - From Admission : Mr. Oro is a 51-year-old male with a history of type 2 diabetes mellitus, Query created by: Roberta Oliveira on 11/05/2016 12:39 PM RESPONSE TEXT: Type 2 diabetes mellitus. Electronically signed by: Wilner Peterson DO 11/09/2016 1:35 PM
== END 2016-11-04 15:40 | disposition home or self-care (01) | DRG 638 ==
LOC: NEPC 19:06 → NEDA 21:34 → N03A 23:50 → N05B 10-29 15:40
PROVIDERS: ADMIT Hospitalist; ATTEND Hospitalist
PROC: 0DJD8ZZ Inspection of Lower Intestinal Tract, Via Natural or Artificial Opening Endoscopic (ICD-10-PCS; principal; 2016-10-30 12:05)
DX: E13.10 Other specified diabetes mellitus with ketoacidosis without coma (principal); K92.1 Melena; R55 Syncope and collapse; B19.20 Unspecified viral hepatitis C without hepatic coma; E78.5 Hyperlipidemia, unspecified; K64.4 Residual hemorrhoidal skin tags; K64.8 Other hemorrhoids; Z79.82 Long term (current) use of aspirin; Z79.4 Long term (current) use of insulin; S39.012A Strain of muscle, fascia and tendon of lower back, initial encounter; W22.8XXA Striking against or struck by other objects, initial encounter; Y92.009 Unspecified place in unspecified non-institutional (private) residence as the place of occurrence of the external cause; F14.90 Cocaine use, unspecified, uncomplicated; Z91.14 Patient's other noncompliance with medication regimen
CPT/HCPCS: 70450; 71010; 74177; 80048; 80053; 81001; 82010; 82550; 82552; 82805; 82948; 83036; 83735; 84100; 84484; 85025; 85027; 85610; 85730; 86850; 86900; 86901; 93005; 93306; 93880; J1815; J1817; J3480; J7030; J7042; Q9967